=== PATIENT | male | born 1965 | race Caucasian/White ===

== ENCOUNTER → 2017-07-27 | Outpatient (CLI) | payer BC, MEDICARE | LOC: DAVITANR 13:12 | PROVIDERS: ATTEND Internal Medicine Nephrology | DX: E87.5 Hyperkalemia (principal) | CPT/HCPCS: 84132 ==

== ENCOUNTER → 2017-08-11 | Outpatient (CLI) | payer BC, MEDICARE | LOC: OD 07:07 | PROVIDERS: ATTEND Internal Medicine Nephrology | DX: E87.5 Hyperkalemia (principal) | CPT/HCPCS: 36415; 84132 ==

== ENCOUNTER → 2017-08-28 | Outpatient (CLI) | payer BC, MEDICARE ==
[2017-08-28 09:03] LABS: VANCOMYCIN,TROUGH 9.3 ug/mL (5.0-20.0)
== END ==
LOC: DAVITANR 07:11
PROVIDERS: ATTEND Internal Medicine Nephrology
DX: K65.9 Peritonitis, unspecified (principal)
CPT/HCPCS: 80202

== ENCOUNTER → 2017-09-01 | Outpatient (CLI) | payer BC, MEDICARE ==
[2017-09-01 08:57] LABS: VANCOMYCIN,TROUGH 19.6 ug/mL (5.0-20.0)
== END ==
LOC: DAVITANR 07:10
PROVIDERS: ATTEND Internal Medicine Nephrology
DX: K65.9 Peritonitis, unspecified (principal)
CPT/HCPCS: 80202

== ENCOUNTER → 2017-10-28 | Outpatient (CLI) | payer BC, MEDICARE | LOC: OD 07:09 | PROVIDERS: ATTEND Internal Medicine Nephrology | DX: E87.5 Hyperkalemia (principal) | CPT/HCPCS: 36415; 84132 ==

== ENCOUNTER 2018-07-23 09:18 | Emergency (ER) | payer BC, MEDICARE ==
--- NOTE | 2018-07-23 09:35 | ER Document Report ---
ED Medical Screen (RME) - General TRAVEL OUTSIDE OF THE [place] IN LAST 30 DAYS: No <PRIYANKA LEYVA - Last Filed: 07/23/18 09:34> <NEVAEH COLMENARES - Last Filed: 07/23/18 18:58> - General Chief Complaint: Abnormal Lab Results Stated Complaint: ABNORMAL LABS Time Seen by Provider: 07/23/18 09:28 Notes: 53 years old male who is on peritoneal dialysis, had blood work done yesterday and he was called by the dialysis center today because potassium was very high. He has been asked to come to the hospital. Patient has no symptoms. Examination-unremarkable. (PRIYANKA LEYVA) - Related Data Allergies/Adverse Reactions: No Known Allergies Allergy (Verified 07/23/18 10:35) Past Medical History - Past Medical History Cardiac Medical History: Reports: Hx Hypertension - on meds Denies: Hx Coronary Artery Disease, Hx Heart Attack Pulmonary Medical History: Denies: Hx Asthma, Hx Bronchitis, Hx COPD, Hx Pneumonia Neurological Medical History: Denies: Hx Cerebrovascular Accident, Hx Seizures Musculoskeltal Medical History: Denies Hx Arthritis Past Surgical History: Reports: Hx Rectal Surgery - Immunizations Hx Diphtheria, Pertussis, Tetanus Vaccination: Yes <PRIYANKA LEYVA - Last Filed: 07/23/18 09:34> - Vital signs Vitals: Temp Pulse Resp BP Pulse Ox 97.6 F 67 16 152/84 H 99 07/23/18 09:29 07/23/18 09:29 07/23/18 09:29 07/23/18 09:29 07/23/18 09:29 Course - Laboratory Result Diagrams: 07/23/18 18:20 <NEVAEH COLMENARES - Last Filed: 07/23/18 18:58> - Vital Signs Vital signs: Temp Pulse Resp BP Pulse Ox 97.6 F 67 14 166/95 H 97 07/23/18 09:29 07/23/18 09:29 07/23/18 18:01 07/23/18 18:00 07/23/18 18:01 - Laboratory Laboratory results interpreted by me: 07/23/18 07/23/18 07/23/18 09:43 12:30 18:20 Potassium 6.6 H* 7.0 H* 5.7 H D Carbon Dioxide 21 L 20 L BUN 62 H 61 H 60 H Creatinine 11.97 H 12.48 H 11.89 H Est GFR ( Amer) 5 L 5 L 5 L Est GFR (Non-Af Amer) 4 L 4 L 5 L Glucose 62 L Magnesium 2.4 H Direct Bilirubin 0.5 H ALT 16 L Doctor's Discharge <PRIYANKA LEYVA - Last Filed: 07/23/18 09:34> <NEVAEH COLMENARES - Last Filed: 07/23/18 18:58> - Discharge Clinical Impression: Hyperkalemia, Chronic kidney disease (CKD) stage G4/A1, severely decreased glomerular filtration rate (GFR) between 15-29 mL/min/1.73 square meter and albuminuria creatinine ratio less than 30 mg/g, Noncompliance with medication regimen Referrals: JOSE ART MD [Primary Care Provider] - Follow up as needed
[2018-07-23 10:16] LABS: ALANINE AMINOTRANSFERASE 16 U/L (21-72); ALKALINE PHOSPHATASE 55 U/L (38-126); ANION GAP 16 (5-19); ASPARTATE AMINO TRANSFERASE 25 U/L (17-59); BILIRUBIN,DIRECT 0.5 mg/dL (0.0-0.4); BILIRUBIN,TOTAL 0.5 mg/dL (0.2-1.3); BLOOD UREA NITROGEN 62 mg/dL (7-20); CALCIUM 9.7 mg/dL (8.4-10.2); CARBON DIOXIDE 26 mmol/L (22-30); CHLORIDE 101 mmol/L (98-107); GLUCOSE 62 mg/dL (75-110)
--- NOTE | 2018-07-23 10:16 | ER Document Report ---
ED General - General Mode of Arrival: Ambulatory Information source: Patient TRAVEL OUTSIDE OF THE [place] IN LAST 30 DAYS: No - Related Data Home Medications: hydralazine 100 mg qhs. ferrous sulfate 325 mg bid. metoprolol 100 mg. [id number] iu. amlodipine 10 mg. doxazosin 4 mg. calcium acetate 667 mg 3 tabs with every meal. sevelamer 800 2 tabs every meal. calcitrol .[address] 20 mg <MARY LAMB - Last Filed: 07/23/18 10:19> <NEVAEH COLMENARES - Last Filed: 07/23/18 18:35> <ANIKET YATES - Last Filed: 07/23/18 18:59> - General Chief Complaint: Abnormal Lab Results Stated Complaint: ABNORMAL LABS Time Seen by Provider: 07/23/18 09:28 Notes: Patient is a 53 year old male currently on peritoneal dialysis was sent to the emergency department due to elevated potassium. Patient states she had blood work done by [facility] for follow up on 07/20/2018. He states he was called this morning and instructed to come to the emergency department due to an elevated potassium. Patient states he has had a copious amount of orange juice the last 4 days, with his last drink being this morning. Patient is currently asymptomatic. Patient's fender finisher is Dr. Art. (MARY LAMB) Late history: The patient is supposed to be taking Kayexalate 30 g once weekly. He has not been taking this medication for at least 1-2 weeks, and has been drinking orange juice every day for the last several days. He was given 15 g of Kayexalate about 10:30 AM, he will be given an additional 30 g of Kayexalate now that I have learned what his weekly dosing is supposed to be. (NEVAEH COLMENARES) - Related Data Allergies/Adverse Reactions: No Known Allergies Allergy (Verified 07/23/18 10:35) Past Medical History - General Information source: Patient - Social History Smoking Status: Former Smoker Chew tobacco use (# tins/day): No Frequency of alcohol use: None Drug Abuse: None Family History: Reviewed & Not Pertinent Patient has suicidal ideation: No Patient has homicidal ideation: No - Past Medical History Cardiac Medical History: Reports: Hx Hypertension - on meds Renal/ Medical History: Reports: Hx Peritoneal Dialysis - nightly Past Surgical History: Reports: Hx Rectal Surgery - Immunizations Hx Diphtheria, Pertussis, Tetanus Vaccination: Yes <MARY LAMB - Last Filed: 07/23/18 10:19> Review of Systems - Review of Systems Constitutional: No symptoms reported EENT: No symptoms reported Cardiovascular: No symptoms reported Respiratory: No symptoms reported Gastrointestinal: No symptoms reported Genitourinary: No symptoms reported Male Genitourinary: No symptoms reported Musculoskeletal: No symptoms reported Hematologic/Lymphatic: See HPI Neurological/Psychological: No symptoms reported -: Yes All other systems reviewed and negative <MARY LAMB - Last Filed: 07/23/18 10:19> Physical Exam <MARY LAMB - Last Filed: 07/23/18 10:19> <NEVAEH COLMENARES - Last Filed: 07/23/18 18:35> <ANIKET YATES - Last Filed: 07/23/18 18:59> - Vital signs Vitals: Temp Pulse Resp BP Pulse Ox 97.6 F 67 16 152/84 H 99 07/23/18 09:29 07/23/18 09:29 07/23/18 09:29 07/23/18 09:29 07/23/18 09:29 - Notes Notes: GENERAL: Alert, interacts well. No acute distress. HEAD: Normocephalic, atraumatic. EYES: Pupils equal, round, and reactive to light. Extraocular movements intact. ENT: Oral mucosa moist, tongue midline. NECK: Full range of motion. Supple. Trachea midline. LUNGS: Clear to auscultation bilaterally, no wheezes, rales, or rhonchi. No respiratory distress. HEART: Regular rate and rhythm. No murmurs, gallops, or rubs. ABDOMEN: Soft, non-tender. Peritoneal cath in place. Non-distended. Bowel sounds present in all 4 quadrants. EXTREMITIES: Moves all 4 extremities spontaneously. NEUROLOGICAL: Alert and oriented x3. Normal speech. PSYCH: Normal affect, normal mood. SKIN: Warm, dry, normal turgor. No rashes or lesions noted. (MARY LAMB) Course - Laboratory Result Diagrams: 07/23/18 09:43 <MARY LAMB - Last Filed: 07/23/18 10:19> - Laboratory Result Diagrams: 07/23/18 12:30 - EKG Interpretation by Me EKG shows normal: Sinus rhythm, [place], Intervals, QRS Complexes, ST-T Waves Rate: Normal - 59 Rhythm: NSR [place]/QRS: Right axis deviation When compared to previous EKG there are: No significant change - Transfer of Care Care transferred to following provider: Dr. Mast <NEVAEH COLMENARES - Last Filed: 07/23/18 18:35> - Laboratory Result Diagrams: 07/23/18 18:20 <ANIKET YATES - Last Filed: 07/23/18 18:59> - Re-evaluation Re-evalutation: 07/23/18 15:15 Repeat potassium went from 6.6 to 7.0 after his initial dose of Kayexalate 15. He was given an additional dose of Kayexalate 30 g. He was also given 1 L of normal saline. The EKG and monitor does not show EKG changes or tall T waves. The patient problems were discussed with Dr. Art who requests I give him an additional 15 g of Kayexalate for a total of 60 g today. And repeat his potassium in 2 hours. If it comes down to 6.0 or less he can be discharged, if it does not then she should be called back for further instructions. We will also give another liter of normal saline. (NEVAEH COLMENARES) 07/23/18 18:58 Received patient as sign out from previous physician pending repeat potassium, according to patient fender finisher if the potassium comes back less than 6 then patient can safely be discharged home to follow-up as an outpatient, repeat potassium is 5.7, therefore patient will be discharged home, patient is in agreement with this plan and was advised to return if any additional concerns ( ANIKET YATES) - Vital Signs Vital signs: Temp Pulse Resp BP Pulse Ox 97.6 F 67 14 166/95 H 97 07/23/18 09:29 07/23/18 09:29 07/23/18 18:01 07/23/18 18:00 07/23/18 18:01 - Laboratory Laboratory results interpreted by me: 07/23/18 07/23/18 07/23/18 09:43 12:30 18:20 Potassium 6.6 H* 7.0 H* 5.7 H D Carbon Dioxide 21 L 20 L BUN 62 H 61 H 60 H Creatinine 11.97 H 12.48 H 11.89 H Est GFR ( Amer) 5 L 5 L 5 L Est GFR (Non-Af Amer) 4 L 4 L 5 L Glucose 62 L Magnesium 2.4 H Direct Bilirubin 0.5 H ALT 16 L - Transfer of Care Notes: 07/23/18 18:32 Pending repeat potassium level. If level is down to 6.0 or less he may go home and take an additional 30 g of Kayexalate tomorrow, and stop eating foods and drinking fluids that are high in potassium. If potassium remains above 6.0, then call Dr. Art for further direction. ( NEVAEH COLMENARES) Critical Care Note - Critical Care Note Total time excluding time spent on procedures (mins): 35 <NEVAEH COLMENARES - Last Filed: 07/23/18 18:35> Discharge <MARY LAMB - Last Filed: 07/23/18 10:19> <NEVAEH COLMENARES - Last Filed: 07/23/18 18:35> <ANIKET YATES - Last Filed: 07/23/18 18:59> - Discharge Clinical Impression: Hyperkalemia, Chronic kidney disease (CKD) stage G4/A1, severely decreased glomerular filtration rate (GFR) between 15-29 mL/min/1.73 square meter and albuminuria creatinine ratio less than 30 mg/g, Noncompliance with medication regimen Condition: Stable Disposition: HOME, SELF-CARE Instructions: Kidney Failure ([facility]) Additional Instructions: Follow up with your primary care provider and fender finisher in one to 2 days. Return to the emergency room immediately if symptoms worsen or any additional concerns. Referrals: JOSE ART MD [Primary Care Provider] - Follow up as needed Scribe Attestation: 07/23/18 12:10 I personally performed the services described in the documentation, reviewed and edited the documentation which was dictated to the scribe in my presence, and it accurately records my words and actions. (NEVAEH COLMENARES) Scribe Documentation - Scribe Written by Scribe:: Nayan Park 07/23/2018 10:18 acting as scribe for :: Rain <MARY LAMB - Last Filed: 07/23/18 10:19>
[2018-07-23 10:20] LABS: POTASSIUM 6.6 mmol/L (3.6-5.0)
[2018-07-23] MEDS ORDERED: SODIUM POLYSTYRENE SULFONATE 15 GM/60 ML PO ONE ×3 (10:25→15:13)
[2018-07-23] MEDS ORDERED: CALCIUM GLUCONATE 1000 MG/10 ML INJ IV ONE (10:25)
[2018-07-23 13:17] LABS: ANION GAP 18 (5-19); BLOOD UREA NITROGEN 61 mg/dL (7-20); CALCIUM 9.4 mg/dL (8.4-10.2); CARBON DIOXIDE 21 mmol/L (22-30); CHLORIDE 102 mmol/L (98-107); GLUCOSE 106 mg/dL (75-110); SODIUM 141.4 mmol/L (137-145)
[2018-07-23] MEDS ORDERED: NORMAL SALINE 1000 ML 1,000 ML IV ONE ×2 (13:24→15:14)
[2018-07-23 18:45] LABS: ANION GAP 18 (5-19); BLOOD UREA NITROGEN 60 mg/dL (7-20); CALCIUM 8.7 mg/dL (8.4-10.2); CARBON DIOXIDE 20 mmol/L (22-30); CHLORIDE 106 mmol/L (98-107); GLUCOSE 108 mg/dL (75-110); SODIUM 143.7 mmol/L (137-145)
[2018-07-23 18:55] LABS: POTASSIUM 5.7 mmol/L (3.6-5.0)
[2018-07-23 19:13] VITALS: BP 172/98
--- NOTE | 2018-07-25 10:48 | EKG REPORT ---
SEVERITY:- ABNORMAL ECG - SINUS RHYTHM RIGHT AXIS DEVIATION : Confirmed by: Riley Felipe 25-Jul-2018 10:47:43
== END 2018-07-23 19:17 | disposition home or self-care (01) ==
LOC: ER 09:18
DX: E87.5 Hyperkalemia (principal); I12.9 Hypertensive chronic kidney disease with stage 1 through stage 4 chronic kidney disease, or unspecified chronic kidney disease; N18.4 Chronic kidney disease, stage 4 (severe); Z99.2 Dependence on renal dialysis; Z91.15 Patient's noncompliance with renal dialysis; Z79.899 Other long term (current) drug therapy; Z87.891 Personal history of nicotine dependence; I10 Essential (primary) hypertension
CPT/HCPCS: 93005; 99285; 96361; 96374; 36415; 83735; 80048; 80053; 93010; J0610; J7030

== ENCOUNTER → 2018-07-26 | Outpatient (CLI) | payer BC, MEDICARE | LOC: OD 13:41 | PROVIDERS: ATTEND Internal Medicine Nephrology | DX: E87.5 Hyperkalemia (principal) | CPT/HCPCS: 36415; 84132 ==

== ENCOUNTER 2018-09-21 08:47 | Day surgery (SDC) | payer OTHER, MEDICARE ==
[2018-09-08 10:54] LABS: HEMATOCRIT 26.4 % (37.9-51.0); MEAN CORPUSCULAR HGB CONC 33.9 g/dL (32.0-36.0); MEAN CORPUSCULAR VOLUME 88 fl (80-97); PLATELET COUNT 370 10^3/uL (150-450); RED BLOOD COUNT 2.99 10^6/uL (4.35-5.55); RED CELL DISTRIBUTION WIDTH 16.1 % (11.5-14.0); WHITE BLOOD COUNT 6.8 10^3/uL (4.0-10.5)
[2018-09-08 11:02] LABS: INTERNATIONAL RATION (INR) 0.94
[2018-09-08 11:03] LABS: PARTIAL THROMBOPLASTIN TIME 29.4 SEC (23.5-35.8)
--- NOTE | 2018-09-09 08:07 | EKG REPORT ---
SEVERITY:- OTHERWISE NORMAL ECG - SINUS RHYTHM LOW VOLTAGE IN FRONTAL LEADS : Confirmed by: Julianna Rodriguez MD 09-Sep-2018 08:06:13
[~2018-09-21 08:47] MED LIST: CEFAZOLIN 1 GM/D5W RTU 1 GM/50 ML RTUPB IV PRN; FENTANYL CITRATE INJ/PF 100 MCG/2 ML AMPUL ONE; LACTATED RINGERS 1000 ML IV PRN; LIDOCAINE 0.5% INJ-PF (5 MG/ML) 50 ML SDV SUBCUT PRN; LIDOCAINE 2% INJ-PF (20 MG/ML) 10 ML AMPUL ONE; MIDAZOLAM 2 MG/2 ML INJ ONE; ONDANSETRON HCL INJ/PF 4 MG/2 ML SDV ONE; PROPOFOL INJ 200 MG/20 ML VIAL IV ONE
[2018-09-21] MEDS ORDERED: CEFAZOLIN 1 GM/D5W RTU 1 GM/50 ML RTUPB IV ONE (08:57)
[2018-09-21] MEDS ORDERED: ALBUTEROL SULFATE 0.083% NEB 2.5 MG/3 ML AMPUL NEB ONE (09:21)
[2018-09-21] MEDS ORDERED: LIDOCAINE 1%/EPINEPHRINE INJ 20 ML VIAL ONE (09:45)
[2018-09-21] MEDS ORDERED: SODIUM BICARBONATE 8.4% INJ 50 MEQ/50 ML DISP.SYRIN ONE (09:45)
[2018-09-21] MEDS ORDERED: KETAMINE HCL INJ 500 MG/10 ML VIAL ONE (10:25)
[2018-09-21] MEDS ORDERED: DIPHENHYDRAMINE HCL 50 MG/ML VIAL IV PRN (10:51)
[2018-09-21] MEDS ORDERED: FENTANYL CITRATE INJ/PF 100 MCG/2 ML AMPUL IV PRN ×3 (10:51)
[2018-09-21] MEDS ORDERED: PROMETHAZINE HCL INJ 25 MG/1 ML VIAL IV PRN (10:51)
[2018-09-21] MEDS ORDERED: ONDANSETRON HCL INJ/PF 4 MG/2 ML SDV IV PRN (10:51)
[2018-09-21] MEDS ORDERED: MEPERIDINE HCL/PF INJ 25 MG/1 ML DISP.SYRIN IV PRN (10:51)
--- NOTE | 2018-09-21 11:17 | Operative Report ---
Operative Report DATE OF SURGERY: 09/21/18 PREOPERATIVE DIAGNOSIS: Basal cell carcinoma of the sternum POSTOPERATIVE DIAGNOSIS: Same OPERATION: Excision of basal cell carcinoma from the sternum with frozen section margin control and reconstruction with a chest sliding advancement flap reconstruction SURGEON: LAUREN HILARIO ANESTHESIA: LMAC TISSUE REMOVED OR ALTERED: Basal cell carcinoma COMPLICATIONS: None ESTIMATED BLOOD LOSS: Minimal PROCEDURE: Patient seen and was marked prior to being brought into the operating room. Patient was brought into the operating room and placed on the operating room table in a [supine] position. Patient was then prepped with a Betadine scrub and Betadine solution and draped in a sterile and aseptic manner. The area was then marked. 12 O'clock was marked towards the neck 3 O'clock was marked towards the left side 6:00 was marked towards the stomach 9:00 was marked towards the right side The area was then anesthetized with 1% lidocaine with epinephrine and bicarbonate for its anesthetic and hemostatic effects. The area was then excised and marked at 12:00. The specimen was sent for frozen section. The results came back that the deep and lateral margins were free. We had considered a primary closure but this would go against the natural relaxed skin tension lines. A primary closure would be too tight and would have increased chance of dehiscence. This will leave more of a scar so we decided to use a sliding advancement flap reconstruction which would camouflage the scar better and take tension off of the closure so that would be less chances of complications. We decided to use the sliding advancement flap which would allow us to minimize the distortion of his chest tattoo. The cancer was located right within the nose of a bat on his chest. By doing a sliding advancement flap we were able to reconstruct this bringing some of the mouth up without distorting the rest of the surrounding tattoo. At the end of the case we had a reasonably good appearance of the tattoo maintaining the lower portion of the mouth of the tattoo of the bad without distortion of the nose or the cheeks of the bat. Then we went ahead and outlined the flap and anesthetized it. We then incised the flap and developed a flap maintaining the subdermal plexus. Then we undermined 360 to allow for plate like scarring and minimize trap door deformity. Throughout the case hemostasis was achieved with the bipolar. We then sutured the flap into its new position using [ 4-0 Vicryl] for the subcutaneous and deep dermis. Skin was closed with a [running subcuticular suture] stitch using [4-0 PDS] with knots being tied on the outside. And [4-0 PDS] suture was used for support and placed in the central area of the incision. We then applied Dermabond followed by a light pressure dressing. Patient was then reversed from anesthesia and taken to the [facility] for recovery. The patient tolerated well. There were no complications. Lesion size was approximately 3 cm please see pathology for actual size. Portions of this note may be dictated using [employer] voice recognition software. Occasional variations and spelling and vocabulary could be possible and are unintentional. Additionally, there is a chance that some errors may not be caught or corrected. Please notify the author of any discrepancies noted or if any statements are unclear. Subjective: No complaints Objective: Vital signs stable afebrile No bleeding Dressing intact Assessment and plan: Doing well. Elevate the operative site. Resume medications. Take antibiotics for 1 day Follow-up Full instructions were given to the patient and family and they understand Portions of this note may be dictated using [employer] voice recognition software. Occasional variations and spelling and vocabulary could be possible and are unintentional. Additionally, there is a chance that some errors may not be caught or corrected. Please notify the offer of any discrepancies noted or if any statements are unclear.
--- NOTE | 2018-09-21 11:19 | Discharge Summary ---
Discharge Summary (SDC) - Discharge Final Diagnosis: Basal cell carcinoma of the sternum Date of Surgery: 09/21/18 Condition: Good Treatment or Instructions: Antibiotics for 1 day, then discontinue. Elevate operative area to decrease swelling. Do not strain, or lift heavy objects. Call for excessive bleeding, increased temperature of 101, uncontrolled pain, or excessive nausea or vomiting. You may reach Dr. Morocho through his office at [phone]. In the event of an emergency after hours, then contact Dr. Morocho through [facility]. Return to the office for a postop check on . The time will be scheduled by the nursing staff of [facility] prior to discharge. Please give the patient a copy of their labs and EKG so they can bring this to their PMD. Thank you Portions of this note may be dictated using [employer] voice recognition software. Occasional variations and spelling and vocabulary could be possible and are unintentional. Additionally, there is a chance that some errors may not be caught or corrected. Please notify the offer of any discrepancies noted or if any statements are unclear. Referrals: ROCIO ACRE MD [Primary Care Provider] - Discharge Diet: As Tolerated Discharge Activity: No Lifting/Push/Pulling Report the Following to Your Physician Immediately: Unusual Bleeding - No bending or straining. No stretching. Keep the chest elevated.
[2018-09-21] MEDS ORDERED: GLYCOPYRROLATE 1 MG/5 ML SYRINGE ONE (11:29)
[2018-09-21 13:47] VITALS: BP 150/85
== END 2018-09-21 13:20 | disposition home or self-care (01) ==
LOC: OROUT 08:47
PROVIDERS: ATTEND Plastic Surgery
DX: C44.599 Other specified malignant neoplasm of skin of other part of trunk (principal); C44.519 Basal cell carcinoma of skin of other part of trunk; Q61.3 Polycystic kidney, unspecified; I10 Essential (primary) hypertension; E11.9 Type 2 diabetes mellitus without complications; Z79.899 Other long term (current) drug therapy; Z87.891 Personal history of nicotine dependence; L57.8 Other skin changes due to chronic exposure to nonionizing radiation; Z01.818 Encounter for other preprocedural examination
CPT/HCPCS: 93010; 93005; 36415 ×2; 84132; 85027; 85610; 85730; 88305 ×2; 88331 ×2; 14000; J2250; J0690; J3010; J3490 ×5; J2405; J2704; 400

== ENCOUNTER 2018-09-21 17:18 | Emergency (ER) | payer OTHER, MEDICARE ==
[2018-09-21 17:27] VITALS: BP 128/85
--- NOTE | 2018-09-21 17:43 | ER Document Report ---
ED GI/ - General Chief Complaint: Urinary Retention Stated Complaint: URINARY ISSUES Time Seen by Provider: 09/21/18 17:34 Primary Care Provider: LAUREN HILARIO MD [ACTIVE STAFF] - Follow up as needed Notes: 53-year-old male to the emergency department chief complaint of urinary retention. Patient had surgery today. Went home but had not urinated. Still cannot urinary. Patient is on peritoneal dialysis but makes urine regularly. Denies any other major symptoms at this time. Patient was having melanoma surgery on his chest. TRAVEL OUTSIDE OF THE [place] IN LAST 30 DAYS: No - HPI Patient complains to provider of: Urinary retention Timing/Duration: Gradual Quality of pain: Achy - Related Data Allergies/Adverse Reactions: No Known Allergies Allergy (Verified 09/08/18 10:57) Past Medical History - General Information source: Patient - Social History Smoking Status: Former Smoker Frequency of alcohol use: None Drug Abuse: None Lives with: Family Family History: Reviewed & Not Pertinent - Past Medical History Cardiac Medical History: Reports: Hx Hypertension Denies: Hx Coronary Artery Disease, Hx Heart Attack Pulmonary Medical History: Denies: Hx Asthma, Hx Bronchitis, Hx COPD, Hx Pneumonia Neurological Medical History: Denies: Hx Cerebrovascular Accident, Hx Seizures Renal/ Medical History: Reports: Hx Peritoneal Dialysis - nightly Musculoskeletal Medical History: Denies Hx Arthritis Past Surgical History: Reports: Hx Rectal Surgery - Immunizations Hx Diphtheria, Pertussis, Tetanus Vaccination: Yes Review of Systems - Review of Systems Constitutional: denies: Fever, Malaise, Weakness Cardiovascular: denies: Chest pain, Palpitations, Heart racing Respiratory: denies: Cough, Hurts to breathe, Short of breath, Wheezing Gastrointestinal: Abdomen distended. denies: Abdominal pain, Diarrhea, Nausea Genitourinary: Retention. denies: Flank pain, Hematuria Physical Exam - Vital signs Vitals: Temp Pulse Resp BP Pulse Ox 98.2 F 61 16 128/85 H 96 09/21/18 17:26 09/21/18 17:26 09/21/18 17:26 09/21/18 17:26 09/21/18 17:26 Interpretation: Normal - General General appearance: Appears well, Alert - Respiratory Respiratory status: No respiratory distress Chest status: Nontender Breath sounds: Normal Chest palpation: Normal - Cardiovascular Rhythm: Regular Heart sounds: Normal auscultation Murmur: No - Abdominal Inspection: Other - Mild distention lower abdomen. Peritoneal dialysis catheter in place. Distension: Distended Tenderness: No: Tender - Extremities General upper extremity: Normal inspection, Nontender, Normal color, Normal ROM, Normal temperature General lower extremity: Normal inspection, Nontender, Normal color, Normal ROM, Normal temperature, Normal weight bearing. No: Thony's sign Course - Re-evaluation Re-evalutation: 09/21/18 17:43 Patient needs catheter placed. Will try to find a room and [facility] as soon as possible. 09/21/18 18:29 Catheter placed. About 450-500 cc return. Clear appearing urine. Sent for analysis. Will DC at this time. 09/21/18 20:09 Laboratory 09/21/18 18:24 Urine Color STRAW Urine Appearance CLEAR Urine pH 9.0 Ur Specific Una 1.008 Urine Protein 100 H Urine Glucose (UA) 150 H Urine Ketones NEGATIVE Urine Blood NEGATIVE Urine Nitrite NEGATIVE Urine Bilirubin NEGATIVE Urine Urobilinogen NEGATIVE Ur Leukocyte Esterase NEGATIVE Urine WBC (Auto) 1 Urine RBC (Auto) 1 Urine Bacteria (Auto) TRACE Urine Mucus (Auto) RARE Urine Ascorbic Acid NEGATIVE - Vital Signs Vital signs: Temp Pulse Resp BP Pulse Ox 98.2 F 61 16 128/85 H 96 09/21/18 17:26 09/21/18 17:26 09/21/18 17:26 09/21/18 17:26 09/21/18 17:26 - Laboratory Laboratory results interpreted by me: 09/21/18 18:24 Urine Protein 100 H Urine Glucose (UA) 150 H Discharge - Discharge Clinical Impression: Acute urinary retention Condition: Good Disposition: HOME, SELF-CARE Instructions: [place] Catheter Care ([facility]), Urinary Retention ([facility]) Additional Instructions: Return in 24-48 hours or return to your primary care doctor in 24-48 hours for removal of the catheter. Forms: Return to Work Referrals: LAUREN HILARIO MD [ACTIVE STAFF] - Follow up as needed
[2018-09-21 18:54] LABS: APPEARANCE,URINE CLEAR; BILIRUBIN,URINE NEGATIVE (NEGATIVE); COLOR,URINE STRAW; GLUCOSE, URINE 150 mg/dL (NEGATIVE); KETONES,URINE NEGATIVE (NEGATIVE); LEUKOCYTE ESTERASE,URINE NEGATIVE (NEGATIVE); NITRITE,URINE NEGATIVE (NEGATIVE); PROTEIN,URINE 100 mg/dL (NEGATIVE); URINE SPECIFIC GRAVITY 1.008; UROBILINOGEN,URINE NEGATIVE mg/dL (<2.0)
== END 2018-09-21 18:45 | disposition home or self-care (01) ==
LOC: ER 17:18
DX: R33.9 Retention of urine, unspecified (principal); I10 Essential (primary) hypertension; Z99.2 Dependence on renal dialysis; Z98.890 Other specified postprocedural states; Z87.891 Personal history of nicotine dependence; Z85.820 Personal history of malignant melanoma of skin
CPT/HCPCS: 51702; 81001; 99283

== ENCOUNTER 2018-09-22 07:46 | Emergency (ER) | payer OTHER, MEDICARE ==
--- NOTE | 2018-09-22 10:30 | ER Document Report ---
ED General - General Chief Complaint: Problem with Urinary Catheter Stated Complaint: REVISIT/CATHETER Time Seen by Provider: 09/22/18 09:55 TRAVEL OUTSIDE OF THE [place] IN LAST 30 DAYS: No - HPI Notes: Patient is a 53-year-old male that presents to the emergency department for chief complaint of Melton catheter removal. Patient had melanoma removed from his chest yesterday morning. Yesterday evening he was having urinary retention from the anesthesia. He was seen in the emergency room and states Melton catheter was placed. He denies any concern at the catheter and has had normal urine output into his catheter. He states he returned today for catheter removal. He denies any fevers or chills, penile pain, abdominal pain, nausea and vomiting. He denies any concern with his incision site states the dressing placed yesterday morning has remained dry. Past Medical History: Skin cancer Past Surgical History: Anterior chest wall skin cancer removal Social History: Denies drugs alcohol and tobacco Family History: Reviewed and noncontributory for presenting illness Allergies: Reviewed, see documented allergy list. REVIEW OF SYSTEMS: CONSTITUTIONAL : No fever No chills No diaphoresis No recent illness EENT: No vision changes No congestion No sore throat CARDIOVASCULAR: No chest pain No palpitations RESPIRATORY: No shortness of breath No cough No difficulty breathing GASTROINTESTINAL: No abdominal pain No nausea No vomiting No diarrhea GENITOURINARY: No dysuria No hematuria No difficulty urinating MUSCULOSKELETAL: No back pain No leg pain No arm pain SKIN: No rashes No lesions LYMPHATIC: No swollen, enlarged glands. NEUROLOGICAL: No lightheadedness No headache No weakness No paresthesias PSYCHIATRIC: No anxiety No depression PHYSICAL EXAMINATION: Vital signs reviewed, nursing noted reviewed. GENERAL: Well-appearing, well-nourished and in no acute distress. HEAD: Atraumatic, normocephalic. EYES: Eyes appear normal, extraocular movements intact, sclera anicteric, conjunctiva are normal. ENT: nares patent, oropharynx clear without exudates. Moist mucous membranes. NECK: Normal range of motion, supple without lymphadenopathy LUNGS: Breath sounds clear to auscultation bilaterally and equal. No wheezes rales or rhonchi. HEART: Regular rate and rhythm without murmurs ABDOMEN: Soft, nontender, normoactive bowel sounds. No rebound, guarding, or rigidity. No masses appreciated. EXTREMITIES: Nontender, good range of motion, no pitting or edema. NEUROLOGICAL: No focal neurological deficits. Moves all extremities spontaneously Motor and sensory grossly intact on exam. PSYCH: Normal mood, normal affect. SKIN: Warm, Dry, normal turgor, no rashes or lesions noted on exposed skin - Related Data Allergies/Adverse Reactions: No Known Allergies Allergy (Verified 09/22/18 07:51) Past Medical History - Social History Smoking Status: Unknown if Ever Smoked Family History: Reviewed & Not Pertinent Patient has suicidal ideation: No Patient has homicidal ideation: No - Past Medical History Cardiac Medical History: Reports: Hx Hypertension Denies: Hx Coronary Artery Disease, Hx Heart Attack Pulmonary Medical History: Denies: Hx Asthma, Hx Bronchitis, Hx COPD, Hx Pneumonia Neurological Medical History: Denies: Hx Cerebrovascular Accident, Hx Seizures Renal/ Medical History: Denies: Hx Peritoneal Dialysis Musculoskeletal Medical History: Denies Hx Arthritis Past Surgical History: Reports: Hx Rectal Surgery - Immunizations Hx Diphtheria, Pertussis, Tetanus Vaccination: Yes Physical Exam - Vital signs Vitals: Temp Pulse Resp BP Pulse Ox 97.9 F 55 L 18 132/83 H 99 09/22/18 07:52 09/22/18 07:52 09/22/18 07:52 09/22/18 07:52 09/22/18 07:52 Course - Re-evaluation Re-evalutation: 09/22/18 10:29 Vitals reviewed. Nursing notes reviewed. Patient is in no acute distress. His Melton catheter will be removed and if he is able to void he will be discharged home. 09/22/18 11:48 Melton catheter was removed and patient was able to void about 50 cc. He has been drinking fluids and after about 2 hours of being in the emergency room he has really only voided a small amount. Bedside ultrasound shows a moderate amount of urine still in his bladder. He is not having any abdominal discomfort or symptoms. I recommended replacing the Melton catheter for bladder decompression. Patient is refusing reinsertion of the Melton catheter. He states that he will continue to try and void on his own at home. His urinary retention is likely related to the anesthesia he received yesterday. I would anticipate as the anesthesia wears off his retention symptoms resolved. Patient is not wanting any further management at this time. He was encouraged to return to the emergency room if he developed further retention symptoms. He is discharged home in stable condition. - Vital Signs Vital signs: Temp Pulse Resp BP Pulse Ox 97.9 F 55 L 18 132/83 H 99 09/22/18 07:52 09/22/18 07:52 09/22/18 07:52 09/22/18 07:52 09/22/18 07:52 Discharge - Discharge Clinical Impression: Urinary retention Condition: Stable Disposition: HOME, SELF-CARE Instructions: Urinary Retention ([facility]) Additional Instructions: Please return to the emergency department if you have any worsening, or concern of your symptoms. Please return to the emergency department if you develop chest pain, difficulty breathing, severe abdominal pain, or ongoing vomiting. Please follow-up with your primary care physician in 2-3 days and any other recommended physicians. If prescribed, take all medications as directed. If you have any questions or concerns do not hesitate to return the emergency department for evaluation. If you are unable to urinate please return to the emergency room as he will require Melton catheter again to empty her bladder.
[2018-09-22 11:58] VITALS: BP 152/89
== END 2018-09-22 11:57 | disposition home or self-care (01) ==
LOC: ER 07:46
DX: T83.098A Other mechanical complication of other urinary catheter, initial encounter (principal); R33.9 Retention of urine, unspecified; I10 Essential (primary) hypertension
CPT/HCPCS: 99283

== ENCOUNTER → 2018-12-08 | Outpatient (CLI) | payer MEDICARE, MEDICAID ==
--- NOTE | 2018-12-08 08:51 | RADIOLOGY REPORT (SQ) ---
EXAM DESCRIPTION: CT ABD/PELVIS WITH IV ORAL COMPLETED DATE/TIME: 12/08/2018 8:38 am REASON FOR STUDY: MELENA/ABN FINDINGS ON DIAGNOSTIC IMAGING OF OTHER PARTS OF DIGESTIVE TRACT K92.1 MELENA R93.3 ABNORMAL FINDINGS ON DX IMAGING OF PRT DIGESTIVE TRACT COMPARISON: 06/12/2015 TECHNIQUE: CT scan of the abdomen and pelvis performed using helical scanning technique with dynamic intravenous contrast injection. No oral contrast. Images reviewed with lung, soft tissue, and bone windows. Reconstructed coronal and sagittal MPR images reviewed. Delayed images for evaluation of the urinary system also acquired. All images stored on PACS. All CT scanners at this facility use dose modulation, iterative reconstruction, and/or weight based d osing when appropriate to reduce radiation dose to as low as reasonably achievable (ALARA). [facility]: Dose Right [facility]: CareDose [facility]: Dose Right [facility]: Teradose 4D [facility]: Granular CONTRAST TYPE AND DOSE: contrast/concentration: Isovue 350.00 mg/ml; Total Contrast Delivered: 85.0 ml; Total Saline Delivered: 69.0 ml RENAL FUNCTION: Creatinine is 14.7. Patient is on dialysis. RADIATION DOSE: CT Rad equipment meets quality standard of care and radiation dose reduction techniq ues were employed. CTDIvol: 7.3 - 8.4 mGy. DLP: 908 mGy-cm.. LIMITATIONS: None. FINDINGS: LOWER CHEST: No significant findings. No nodules or infiltrates. LIVER: Multiple stable hepatic cysts. SPLEEN: Normal size. No focal lesions. PANCREAS: No masses. No significant calcifications. No adjacent inflammation or peripancreatic fluid collections. Pancreatic duct not dilated. GALLBLADDER: No identified stones by CT criteria. No inflammatory changes to suggest cholecystitis. ADRENAL GLANDS: The left adrenal appears normal. Right adrenal gland is poorly visualized. RIGHT KIDNEY AND URETER: Numerous right renal cysts consistent with polycystic renal disease. Kidney s are enlarged. No significant calcifications. No hydronephrosis or hydroureter. LEFT KIDNEY AND URETER: Numerous left renal cysts consistent with polycystic renal disease. The left kidney is enlarged. No significant calcifications. No hydronephrosis or hydroureter. AORTA AND VESSELS: No aneurysm. No dissection. Renal arteries, SMA, celiac without stenosis. RETROPERITONEUM: No retroperitoneal adenopathy, hemorrhage or masses. BOWEL AND PERITONEAL CAVITY: No focal masses. Large and small bowel is displaced by the fall is cyst ic kidneys. APPENDIX: Not visualized. PELVIS: There is a small amount of free fluid in the pelvis. ABDOMINAL WALL: No masses. No hernias. BONES: No significant or acute findings. OTHER: Peritoneal dialysis catheter is in place. IMPRESSION: Polycystic renal disease. No focal inflammatory changes. No focal masses. TECHNICAL DOCUMENTATION: JOB ID: [id number] Quality ID # [id number]: Final reports with documentation of one or more dose reduction techniques (e.g., Au tomated exposure control, adjustment of the mA and/or kV according to patient size, use of iterative reconstruction technique) 2010 [employer]- All Rights Reserved Reading location - IP/workstation name: [email or web address]
== END ==
LOC: RAD 07:48
PROVIDERS: ATTEND Internal Medicine Gastroenterology
DX: K92.1 Melena (principal); R93.3 Abnormal findings on diagnostic imaging of other parts of digestive tract; Q61.3 Polycystic kidney, unspecified
CPT/HCPCS: 74177; 82565

== ENCOUNTER 2019-01-13 06:04 | Day surgery (SDC) | payer MEDICARE, OTHER, MEDICAID ==
[2019-01-07 09:42] LABS: ABSOLUTE BASOPHILS # (AUTO) 0.1 10^3/uL (0.0-0.2); ABSOLUTE EOSINOPHILS # (AUTO) 0.1 10^3/uL (0.0-0.6); ABSOLUTE LYMPHOCYTES (AUTO) 1.2 10^3/uL (0.5-4.7); ABSOLUTE MONOCYTES (AUTO) 0.9 10^3/uL (0.1-1.4); ABSOLUTE NEUT (AUTO) 3.4 10^3/uL (1.7-8.2); BASOPHILS % (AUTO) 1.2 % (0-2); EOSINOPHILS % (AUTO) 2.3 % (0-6); HEMATOCRIT 33.3 % (37.9-51.0); HEMOGLOBIN 10.7 g/dL (13.5-17.0); LYMPHOCYTES % (AUTO) 20.8 % (13-45); MEAN CORPUSCULAR HEMOGLOBIN 27.4 pg (27.0-33.4); MEAN CORPUSCULAR HGB CONC 32.1 g/dL (32.0-36.0); MEAN CORPUSCULAR VOLUME 85 fl (80-97); MONOCYTES % (AUTO) 15.8 % (3-13); PLATELET COUNT 379 10^3/uL (150-450); RED CELL DISTRIBUTION WIDTH 15.6 % (11.5-14.0); SEGMENTED NEUTROPHILS % (AUTO) 59.9 % (42-78); TOTAL CELLS COUNTED % (AUTO) 100 %; WHITE BLOOD COUNT 5.7 10^3/uL (4.0-10.5)
[2019-01-07 10:03] LABS: ANION GAP 15 (5-19); BLOOD UREA NITROGEN 63 mg/dL (7-20); CALCIUM 10.2 mg/dL (8.4-10.2); CARBON DIOXIDE 25 mmol/L (22-30); CHLORIDE 102 mmol/L (98-107); GLUCOSE 83 mg/dL (75-110); POTASSIUM 5.7 mmol/L (3.6-5.0); SODIUM 142.4 mmol/L (137-145)
--- NOTE | 2019-01-07 22:36 | EKG REPORT ---
SEVERITY:- ABNORMAL ECG - SINUS RHYTHM PROBABLE LEFT ATRIAL ABNORMALITY CONSIDER ANTEROSEPTAL INFARCT : Confirmed by: Riley Felipe 07-Jan-2019 22:35:53
[~2019-01-13 06:04] MED LIST changes: -CEFAZOLIN 1 GM/D5W RTU 1 GM/50 ML RTUPB IV PRN; -FENTANYL CITRATE INJ/PF 100 MCG/2 ML AMPUL ONE; +IBUPROFEN 800 MG in NORMAL SALINE 250 ML IV PRN; -LACTATED RINGERS 1000 ML IV PRN; -LIDOCAINE 2% INJ-PF (20 MG/ML) 10 ML AMPUL ONE; +METRONIDAZOLE 500 MG/NS RTU 500 MG/100 ML RTUPB IV ONE; +METRONIDAZOLE 500 MG/NS RTU 500 MG/100 ML RTUPB IV PRN; -MIDAZOLAM 2 MG/2 ML INJ ONE; +NORMAL SALINE 1000 ML (RENAL PATIENTS) IV PRN; -ONDANSETRON HCL INJ/PF 4 MG/2 ML SDV ONE; +PREGABALIN 50 MG CAPSULE ONE; +PREGABALIN 50 MG CAPSULE PO PRN; -PROPOFOL INJ 200 MG/20 ML VIAL IV ONE
[2019-01-13] MEDS ORDERED: BACITRACIN ZINC OINTMENT 15 GM ONE (07:07)
[2019-01-13] MEDS ORDERED: BUPIVACAINE INJ/PF LIPOSOME/PF 266 MG/20 ML SDV ONE (07:07)
[2019-01-13] MEDS ORDERED: LIDOCAINE 2% JELLY 30 ML TUBE ONE (07:07)
[2019-01-13] MEDS ORDERED: MIDAZOLAM 2 MG/2 ML INJ ONE (08:01)
[2019-01-13] MEDS ORDERED: PROPOFOL INJ 200 MG/20 ML VIAL IV ONE (08:02)
[2019-01-13] MEDS ORDERED: KETAMINE HCL INJ 500 MG/10 ML VIAL ONE (09:16)
--- NOTE | 2019-01-13 09:17 | Discharge Summary ---
Discharge Summary (SDC) - Discharge Final Diagnosis: Enlarged internal/external hemorrhoids with bleeding Date of Surgery: 01/13/19 Discharge Date: 01/13/19 Condition: Stable Treatment or Instructions: Discharge home. Diet as tolerated. Activity nonstrenuous. Follow-up with me in 7 to 10 days. [place] 10/325 mg p.o. every 6 hours as needed for pain. Ibuprofen 800 mg p.o. 3 times daily with meals. 5% lidocaine ointment to rectum 3 times daily. [id number] Neosporin ointment to rectum 3 times daily. Fiber supplement twice daily. Colace 200 mg ([id number]) p.o. twice daily. Soak rectum/anus in warm bathtub with soap and water twice daily and after bowel movements. Referrals: ROCIO ARCE MD [Primary Care Provider] - Discharge Diet: As Tolerated Respiratory Treatments at Home: Deep Breathing/Coughing, Incentive Spirometer Discharge Activity: Balance Activity w/Rest Home Care Assistance: None Needed Report the Following to Your Physician Immediately: Shortness of Breath, Nausea, Vomiting, Increase in Pain, Fever over 101 Degrees, Unusual Bleeding, Redness
--- NOTE | 2019-01-13 09:21 | Operative Report ---
Nonrecallable Operative Report DATE OF SURGERY: 01/13/19 PREOPERATIVE DIAGNOSIS: Enlarged internal and external hemorrhoids with bleeding POSTOPERATIVE DIAGNOSIS: Same as above, right posterior and left lateral OPERATION: 2 column surgical hemorrhoidectomy. Right posterior and left lateral columns. SURGEON: LISA WU PHYSICAL TESTING SUPERVISOR: ROSALINA ERVIN ANESTHESIA: LMAC TISSUE REMOVED OR ALTERED: Right posterior and left lateral hemorrhoid columns COMPLICATIONS: None apparent ESTIMATED BLOOD LOSS: 30 cc PROCEDURE: Procedure in detail: After informed consent was obtained, the patient was laid in the prone position in the operating room. An anal block was created with Exparel. Next, a Hill-Riggs retractor was inserted into the anus. Hemorrhoids in the left lateral and right posterior columns were found to be enlarged. These 2 hemorrhoid columns were excised using electrocautery. The resultant defect was closed using 3-0 chromic suture. Great care was taken to reapproximate mucosa to mucosa, anoderm to anoderm, and skin to skin. The anus and rectum was found to be hemostatic. Once this was completed, the procedure was concluded. All sponge, instrument, needle counts were correct x2. Condition: Stable. Rosalina Ervin PA-C was scrubbed and present the entirety the procedure. She assisted with all portions of the procedure including excision of the hemorrhoids, closure of the defect, placement of the dressing.
[2019-01-13] MEDS ORDERED: HYDROCODONE/ACETAMINOPHEN 10-325 MG TABLET PO PRN (09:33)
[2019-01-13] MEDS ORDERED: IBUPROFEN 800 MG TABLET PO SCH (10:00)
[2019-01-13] MEDS ORDERED: NEOMY/BACITRAC ZN/POLY OINT 15 GM TP SCH (10:00)
[2019-01-13] MEDS ORDERED: DOCUSATE SODIUM 100 MG CAPSULE PO SCH (10:00)
[2019-01-13] MEDS ORDERED: LIDOCAINE 5% OINTMENT 35.44 GM TP SCH (10:00)
[2019-01-13 10:04] LABS: PHOSPHORUS 7.6 mg/dL (2.5-4.5)
[2019-01-13 12:50] VITALS: BP 158/106
== END 2019-01-13 11:05 | disposition home or self-care (01) ==
LOC: OROUT 06:04
PROVIDERS: ATTEND Surgery
DX: K64.4 Residual hemorrhoidal skin tags (principal); K64.8 Other hemorrhoids; Q61.3 Polycystic kidney, unspecified; Z99.2 Dependence on renal dialysis; I10 Essential (primary) hypertension; K43.2 Incisional hernia without obstruction or gangrene; Z87.891 Personal history of nicotine dependence; Z79.899 Other long term (current) drug therapy
CPT/HCPCS: 93005; 36415 ×2; 83735; 84100; 84132; 85025; 80048; 88304 ×2; 93010; 46260; J2250; J3490 ×3; J7050; J2704; A9270; C9290; J1741; 902

== ENCOUNTER → 2019-04-19 | Outpatient (CLI) | payer MEDICARE, OTHER, MEDICAID | LOC: DAVITANR 09:41 | PROVIDERS: ATTEND Internal Medicine Nephrology | DX: E87.5 Hyperkalemia (principal) | CPT/HCPCS: 84132 ==

== ENCOUNTER 2019-05-18 07:59 | Emergency (ER) | payer MEDICARE, OTHER, MEDICAID ==
[2019-05-18] MEDS ORDERED: AMOXICILLIN TR/POT CLAVULANATE 500-125 MG TAB PO ONE (08:55)
--- NOTE | 2019-05-18 09:03 | ER Document Report ---
ED General - General Chief Complaint: Sore Throat Stated Complaint: SORE THROAT Time Seen by Provider: 05/18/19 08:42 Primary Care Provider: ROCIO ARCE MD [Primary Care Provider] - Follow up as needed TRAVEL OUTSIDE OF THE [place] IN LAST 30 DAYS: No - HPI Notes: 53-year-old male with a history of end-stage renal disease on home peritoneal dialysis presents with sore throat. Gradual onset over the last 24 hours burning pain in his throat, worse with swallowing. No fever, no runny nose congestion. Throat felt scratchy prior to this. No abdominal pain. No cough. Moderate intensity, gradual onset, nonradiating. No other modifying factors, no other associated symptoms, no other provocative or palliative factors. - Related Data Allergies/Adverse Reactions: gabapentin [From Neurontin] Allergy (Verified 05/18/19 08:19) hydroxyzine [From Atarax] Allergy (Verified 05/18/19 08:19) Past Medical History - Social History Smoking Status: Former Smoker Chew tobacco use (# tins/day): No Frequency of alcohol use: Occasional Drug Abuse: None Family History: Reviewed & Not Pertinent Patient has suicidal ideation: No Patient has homicidal ideation: No - Past Medical History Cardiac Medical History: Reports: Hx Hypertension Denies: Hx Coronary Artery Disease, Hx Heart Attack Pulmonary Medical History: Denies: Hx Asthma, Hx Bronchitis, Hx COPD, Hx Pneumonia Neurological Medical History: Denies: Hx Cerebrovascular Accident, Hx Seizures Renal/ Medical History: Reports: Hx End Stage Renal Disease, Hx Peritoneal Dialysis GI Medical History: Reports: Hx Gastroesophageal Reflux Disease, Hx Ulcer Musculoskeletal Medical History: Reports Hx Arthritis - generalized Past Surgical History: Reports: Hx Rectal Surgery - Immunizations Hx Diphtheria, Pertussis, Tetanus Vaccination: Yes Hx Pneumococcal Vaccination: 08/17/17 Review of Systems - Review of Systems Notes: Review of systems as in the history of present illness, otherwise negative x 10 systems. Physical Exam - Vital signs Vitals: Temp Pulse Resp BP Pulse Ox 97.6 F 69 18 175/110 H 100 05/18/19 08:03 05/18/19 08:03 05/18/19 08:03 05/18/19 08:03 05/18/19 08:03 - Notes Notes: General: Well developed . HEENT: Normocephalic, atraumatic. Pupils equal round reactive to light. No JV D. Moderate pharyngeal injection. The uvula is enlarged, edematous and red Chest: No trauma. Respiratory: Good air exchange, normal excursion. Cardiac: Regular rhythm. No murmurs or gallops. Abdomen: Soft, benign. Nondistended. Nontender. Back: No asymmetry or gross abnormality. Motor: Grossly normal power and tone. Neurologic: Alert, nonfocal. Cranial nerves II-12 are intact. Sensation intact. Vascular: Well perfused. Normal peripheral pulses. Skin: No petechiae or purpura. Course - Re-evaluation Re-evalutation: 05/18/19 08:58 Well-appearing male with pharyngitis and isolated uvulitis, bacterial versus viral. Will err on the side of caution and cover with antibiotics for bacterial. Specific instructions are given to return if any worsening. Strep test have been ordered, however, will not wait on results as his disposition will not change, he is being treated with antibiotics. 05/18/19 08:59 - Vital Signs Vital signs: Temp Pulse Resp BP Pulse Ox 97.6 F 69 18 175/110 H 100 05/18/19 08:03 05/18/19 08:03 05/18/19 08:03 05/18/19 08:03 05/18/19 08:03 Discharge - Discharge Clinical Impression: Uvulitis Condition: Stable Disposition: HOME, SELF-CARE Instructions: Sore Throat ([facility]) Prescriptions: Amox Tr/Potassium Clavulanate [Augmentin 875-125 Tablet] 1 tab PO BID 10 Days tablet Referrals: ROCIO ARCE MD [Primary Care Provider] - Follow up in 1 week
[2019-05-18 09:25] VITALS: BP 172/108
== END 2019-05-18 09:23 | disposition home or self-care (01) ==
LOC: ER 07:59
DX: K12.2 Cellulitis and abscess of mouth (principal); J02.9 Acute pharyngitis, unspecified; I12.0 Hypertensive chronic kidney disease with stage 5 chronic kidney disease or end stage renal disease; N18.6 End stage renal disease; Z99.2 Dependence on renal dialysis; Z87.891 Personal history of nicotine dependence; Z88.6 Allergy status to analgesic agent; Z88.8 Allergy status to other drugs, medicaments and biological substances
CPT/HCPCS: 99282; 87070; A9270

== ENCOUNTER 2019-06-11 09:12 | Emergency (ER) | payer MEDICARE, OTHER, MEDICAID ==
--- NOTE | 2019-06-11 09:28 | ER Document Report ---
ED Medical Screen (RME) - General Chief Complaint: Dialysis Catheter Problem Stated Complaint: DIALYSIS ISSUE Time Seen by Provider: 06/11/19 09:16 Primary Care Provider: Oralia AGUILAR MD [Primary Care Provider] - Follow up as needed Mode of Arrival: Ambulatory Information source: Patient Notes: Patient presents complaining of his peritoneal dialysis catheter not draining. Patient states that he connected to solution yesterday and it did not drain overnight. Patient denies any fever, nausea, vomiting or abdominal pain at this time. Patient states he did take MiraLAX [id number] to see if that would help him have a bowel movement to may be allow the catheter to drain. hx: Peritoneal dialysis, hypertension, polycystic kidney I have greeted and performed a rapid initial assessment of this patient. A comprehensive ED assessment and evaluation of the patient, analysis of test results and completion of the medical decision making process will be conducted by additional ED providers. TRAVEL OUTSIDE OF THE [place] IN LAST 30 DAYS: No - Related Data Allergies/Adverse Reactions: gabapentin [From Neurontin] Allergy (Verified 05/18/19 08:19) hydroxyzine [From Atarax] Allergy (Verified 05/18/19 08:19) Past Medical History - Social History Frequency of alcohol use: Occasional - Past Medical History Cardiac Medical History: Reports: Hx Hypertension Denies: Hx Coronary Artery Disease, Hx Heart Attack Pulmonary Medical History: Denies: Hx Asthma, Hx Bronchitis, Hx COPD, Hx Pneumonia Neurological Medical History: Denies: Hx Cerebrovascular Accident, Hx Seizures Renal/ Medical History: Reports: Hx End Stage Renal Disease, Hx Peritoneal Dialysis GI Medical History: Reports: Hx Gastroesophageal Reflux Disease, Hx Ulcer Musculoskeltal Medical History: Reports Hx Arthritis - generalized Past Surgical History: Reports: Hx Rectal Surgery - Immunizations Hx Diphtheria, Pertussis, Tetanus Vaccination: Yes Physical Exam - Vital signs Vitals: Temp Pulse Resp BP Pulse Ox 97.3 F 64 18 141/90 H 97 06/11/19 09:17 06/11/19 09:17 06/11/19 09:17 06/11/19 09:17 06/11/19 09:17 - Abdominal Distension: Distended Tenderness: Nontender Course - Vital Signs Vital signs: Temp Pulse Resp BP Pulse Ox 97.3 F 64 18 141/90 H 97 06/11/19 09:17 06/11/19 09:17 06/11/19 09:17 06/11/19 09:17 06/11/19 09:17 Doctor's Discharge - Discharge Referrals: Oralia AGUILAR MD [Primary Care Provider] - Follow up as needed
--- NOTE | 2019-06-11 10:23 | ER Document Report ---
ED General - General Chief Complaint: Dialysis Catheter Problem Stated Complaint: DIALYSIS ISSUE Time Seen by Provider: 06/11/19 09:16 Primary Care Provider: Oralia AGUILAR MD [ACTIVE STAFF] - Follow up as needed Mode of Arrival: Ambulatory Information source: Patient, Dr. Office, [facility] Records Notes: 53-year-old male with end-stage renal disease, hypertension who performs peritoneal dialysis presents with concern for clogged PD catheter. Patient states that he placed 1300 cc of solution into his abdomen last night and awoke this morning with no drainage. He does state he feels his abdomen is more distended. He denies any abdominal pain, fever, chills, nausea, vomiting. He does report his last bowel movement was this morning. He denies any black or bl oody stools. Patient does report that he called the peritoneal nurse on-call who recommended that he be seen in the emergency department. TRAVEL OUTSIDE OF THE [place] IN LAST 30 DAYS: No - HPI Onset: This morning Onset/Duration: Sudden Quality of pain: No pain Severity: None Pain Level: Denies Associated symptoms: denies: Chest pain, Fever, Nausea, Vomiting, Shortness of breath Exacerbated by: Denies Relieved by: Denies Similar symptoms previously: Yes Recently seen / treated by doctor: No - Related Data Allergies/Adverse Reactions: gabapentin [From Neurontin] Allergy (Verified 05/18/19 08:19) hydroxyzine [From Atarax] Allergy (Verified 05/18/19 08:19) Past Medical History - General Information source: Patient - Social History Smoking Status: Never Smoker Frequency of alcohol use: Occasional Drug Abuse: None Lives with: Alone Family History: Reviewed & Not Pertinent Patient has suicidal ideation: No Patient has homicidal ideation: No - Past Medical History Cardiac Medical History: Reports: Hx Hypertension Denies: Hx Coronary Artery Disease, Hx Heart Attack Pulmonary Medical History: Denies: Hx Asthma, Hx Bronchitis, Hx COPD, Hx Pneumonia Neurological Medical History: Denies: Hx Cerebrovascular Accident, Hx Seizures Renal/ Medical History: Reports: Hx End Stage Renal Disease, Hx Peritoneal Dialysis GI Medical History: Reports: Hx Gastroesophageal Reflux Disease, Hx Ulcer Musculoskeletal Medical History: Reports Hx Arthritis - generalized Past Surgical History: Reports: Hx Rectal Surgery - Immunizations Hx Diphtheria, Pertussis, Tetanus Vaccination: Yes Hx Pneumococcal Vaccination: 08/17/17 Review of Systems - Review of Systems Notes: REVIEW OF SYSTEMS: CONSTITUTIONAL : Denies fever, chills, or sweats. Denies recent illness. Denies weight loss, recent hospitalizations. EENT: Denies visual changes, eye pain. Denies sore throat, oral lesions, diffi culty swallowing. CARDIOVASCULAR: Denies chest pain. Denies palpitations. Denies lower extremity edema. RESPIRATORY: Denies cough. Denies shortness of breath, wheezing. GASTROINTESTINAL: Denies abdominal pain + distention. Denies nausea, vomiting, or diarrhea. Denies blood in vomitus, stools, or per rectum. Denies black, tarry stools. + constipation. GENITOURINARY: Denies difficulty urinating, painful urination, frequency, blood in urine, testicular pain or penile discharge. MUSCULOSKELETAL: Denies back or neck pain or stiffness. Denies joint pain or swelling. SKIN: Denies rash, lesions or sores. HEMATOLOGIC : Denies easy bruising or bleeding. LYMPHATIC: Denies swollen glands. NEUROLOGICAL: Denies confusion or altered mental status. Denies loss of consciousness. Denies dizziness or lightheadedness. Denies headache. Denies weakness or paralysis. Denies problems difficulty with ambulation, slurred speech. Denies sensory loss, numbness, or tingling. Denies seizures. PSYCHIATRIC: Denies anxiety or stress. Denies depression, suicidal ideation, or Physical Exam - Vital signs Vitals: Temp Pulse Resp BP Pulse Ox 97.3 F 64 18 141/90 H 97 06/11/19 09:17 06/11/19 09:17 06/11/19 09:17 06/11/19 09:17 06/11/19 09:17 - Notes Notes: PHYSICAL EXAMINATION: GENERAL: Well-appearing, well-nourished and in no acute distress. HEAD: Atraumatic, normocephalic. EYES: Pupils equal round and reactive to light, extraocular movements intact, sclera anicteric, conjunctiva are normal. ENT: Nares patent, oropharynx clear without exudates. Moist mucous membranes. NECK: Normal range of motion, supple without lymphadenopathy LUNGS: Breath sounds clear to auscultation bilaterally and equal. No wheezes rales or rhonchi. HEART: Regular rate and rhythm without murmurs ABDOMEN: Soft, nontender, + positive abdominal distention. No guarding, no rebound. No masses appreciated. Musculoskeletal: Normal range of motion, no pitting or edema. No cyanosis. NEUROLOGICAL: Cranial nerves grossly intact. Normal speech, normal gait. Normal sensory, motor exams PSYCH: Normal mood, normal affect. SKIN: Warm, Dry, normal turgor, no rashes or lesions noted. Course - Re-evaluation Re-evalutation: 06/11/19 12:[address] Lucas who recommended to obtain a KUB to check for constipation as this can often be a source of peritoneal dialysis catheter dysfunction. This was obtained and showed no evidence of constipation. We did also try to flush the catheter with PD solution and 300 was infused and drained. We did speak to the peritoneal dialysis nurse on-call who recommends heparin. If this does not work patient will need surgical consult. 06/11/19 13:[address] Lucas again regarding patient's peritoneal dialysis catheter. I did explain to her that whatever fluid we infused was draining and she now recommends a full exchange in the emergency department. She states that if it drains the patient can be discharged home and needs to call the peritoneal dialysis nurse that she believes this might be a machine issue. 06/11/19 17:45 Exchange was completed and the entire solution amount was drained. Patient was very happy with this and was discharged home in stable condition with recommendations to call his peritoneal dialysis nurse so that she can assess the machine for malfunction. Patient was evaluated and treated as appropriate for the patient's presenting symptoms and complaint, with consideration of any critical or life threatening conditions that may be associated with their obtained history and exam as noted above. All results were discussed with patient and... Patient provided the opportunity to ask questions, and express concerns. Patient was educated on treatments based on their presumed diagnosis as noted above. At this time we will discharge the patient with return precautions and follow-up recommendations. Verbal discharge instructions given a the bedside. Medication warnings reviewed. Patient is in agreement with this plan and has verbalized understanding of return precautions. After careful consideration I feel that that patient can be safely discharged from the emergency department, they were advised to followup with a primary care physician in 2-3 days. Dictation on this chart was performed using voice recognition software and may result in unintended grammatical, spelling, syntax or errors. - Vital Signs Vital signs: Temp Pulse Resp BP Pulse Ox 97.3 F 68 16 143/92 H 99 06/11/19 15:56 06/11/19 15:56 06/11/19 15:56 06/11/19 15:56 06/11/19 15:56 - Laboratory Result Diagrams: 06/11/19 10:18 06/11/19 10:18 Laboratory results interpreted by me: 06/11/19 06/11/19 10:18 10:18 RBC 3.52 L Hgb 10.3 L Hct 31.2 L RDW 15.7 H Sodium 131.9 L Potassium 5.6 H Chloride 89 L BUN 49 H Creatinine 11.87 H Est GFR ( Amer) 5 L Est GFR (MDRD) Non-Af 5 L - Diagnostic Test Radiology reviewed: Image reviewed, Reports reviewed Discharge - Discharge Clinical Impression: Peritoneal dialysis catheter dysfunction Qualifiers: Encounter type: initial encounter Qualified Code(s): T85.611A - Breakdown (mechanical) of intraperitoneal dialysis catheter, initial encounter Condition: Good Disposition: HOME, SELF-CARE Additional Instructions: Please contact your peritoneal dialysis nurse so that she can check your machine. Follow up with your [id number] hours for further care or return to the ED IMMEDIATELY if symptoms worsen or you have any concerns. If you cannot afford to follow up with your primary care physician a list of low cost clinics have been provided at the end of your discharge papers as well. Most prescribed medications have multiple side effects. The safest thing to do is when filling your prescription speak to your pharmacist regarding possible interactions with your normal home medications and over the counter medications such as Ibuprofen, Tylenol, Benadryl. If you experience any symptoms that cause you discomfort or concern you should discontinue the medication immediately and return to the emergency room or call your primary care physician. Forms: Elevated Blood Pressure Referrals: Oralia AGUILAR MD [ACTIVE STAFF] - Follow up as needed
[2019-06-11 10:36] LABS: ABSOLUTE EOSINOPHILS # (AUTO) 0.2 10^3/uL (0.0-0.6); ABSOLUTE MONOCYTES (AUTO) 0.7 10^3/uL (0.1-1.4); ABSOLUTE NEUT (AUTO) 4.1 10^3/uL (1.7-8.2); BASOPHILS % (AUTO) 0.3 % (0-2); EOSINOPHILS % (AUTO) 2.6 % (0-6); HEMATOCRIT 31.2 % (37.9-51.0); HEMOGLOBIN 10.3 g/dL (13.5-17.0); LYMPHOCYTES % (AUTO) 16.7 % (13-45); MEAN CORPUSCULAR HEMOGLOBIN 29.4 pg (27.0-33.4); MEAN CORPUSCULAR HGB CONC 33.1 g/dL (32.0-36.0); MEAN CORPUSCULAR VOLUME 89 fl (80-97); MONOCYTES % (AUTO) 11.3 % (3-13); PLATELET COUNT 396 10^3/uL (150-450); RED BLOOD COUNT 3.52 10^6/uL (4.35-5.55); RED CELL DISTRIBUTION WIDTH 15.7 % (11.5-14.0); SEGMENTED NEUTROPHILS % (AUTO) 69.1 % (42-78); TOTAL CELLS COUNTED % (AUTO) 100 %
[2019-06-11 10:46] LABS: ALBUMIN 3.5 g/dL (3.5-5.0); ALKALINE PHOSPHATASE 65 U/L (38-126); ANION GAP 17 (5-19); ASPARTATE AMINO TRANSFERASE 32 U/L (17-59); BILIRUBIN,DIRECT 0.4 mg/dL (0.0-0.4); BILIRUBIN,TOTAL 0.5 mg/dL (0.2-1.3); BLOOD UREA NITROGEN 49 mg/dL (7-20); CALCIUM 8.9 mg/dL (8.4-10.2); CARBON DIOXIDE 26 mmol/L (22-30); CHLORIDE 89 mmol/L (98-107); GLUCOSE 83 mg/dL (75-110); POTASSIUM 5.6 mmol/L (3.6-5.0); TOTAL PROTEIN 6.5 g/dL (6.3-8.2)
--- NOTE | 2019-06-11 11:03 | RADIOLOGY REPORT (SQ) ---
EXAM DESCRIPTION: KUB/ABDOMEN (SINGLE VIEW) COMPLETED DATE/TIME: 06/11/2019 10:46 am REASON FOR STUDY: constipation COMPARISON: None. NUMBER OF VIEWS: One view. TECHNIQUE: Supine radiographic image of the abdomen acquired. LIMITATIONS: None. FINDINGS: BOWEL GAS PATTERN: Normal bowel gas pattern. No dilated loops. CALCIFICATIONS: Possible nephrolithiasis. SOFT TISSUES: No gross mass or suggestion of organomegaly. HARDWARE: Dialysis catheter. BONES: No acute fracture. No worrisome bone lesions. OTHER: No other significant finding. IMPRESSION: Possible nephrolithiasis. No evidence for constipation. TECHNICAL DOCUMENTATION: JOB ID: [id number] [employer]- All Rights Reserved Reading location - IP/workstation name: [email or web address]
[2019-06-11] MEDS ORDERED: HEPARIN SOD (PORCINE) 1,000 UNIT/ML 1 ML VIAL IV ONE (12:10)
--- NOTE | 2019-06-11 13:09 | EKG REPORT ---
SEVERITY:- ABNORMAL ECG - SINUS RHYTHM RIGHT AXIS DEVIATION CONSIDER ANTEROSEPTAL INFARCT : Confirmed by: Julianna Rodriguez MD 11-Jun-2019 13:08:43
[2019-06-11 15:57] VITALS: BP 143/92
== END 2019-06-11 15:57 | disposition home or self-care (01) ==
LOC: ER 09:12
DX: T85.611A Breakdown (mechanical) of intraperitoneal dialysis catheter, initial encounter (principal); I12.0 Hypertensive chronic kidney disease with stage 5 chronic kidney disease or end stage renal disease; N18.6 End stage renal disease; Z99.2 Dependence on renal dialysis; X58.XXXA Exposure to other specified factors, initial encounter
CPT/HCPCS: 93005; 99283; 36415; 85025; 80053; 74018; 93010; J1644

== ENCOUNTER 2019-06-24 17:22 | Emergency (ER) | payer MEDICARE, OTHER, MEDICAID ==
--- NOTE | 2019-06-24 18:40 | ER Document Report ---
ED Medical Screen (RME) - General Chief Complaint: Abnormal Lab Results Stated Complaint: ABNORMAL LABS Time Seen by Provider: 06/24/19 18:38 Primary Care Provider: ROCIO ARCE MD [Primary Care Provider] - Follow up as needed Mode of Arrival: Ambulatory Information source: Patient Notes: 53-year-old male presented to ED for abnormal potassium. He states he was called at home and told that his potassium was 7.3 the labs were drawn on 06/22/2019. He states he has renal failure and does peritoneal dialysis every night. He states he has been doing his peritoneal dialysis as ordered. He is not having any pain or discomfort at this time. We will get a EKG labs and have him in a room to be monitored. States his abdomen is full due to he has a full peritoneal dialysis bag in his abdomen needs to be drained tonight. I have greeted and performed a rapid initial assessment of this patient. A comprehensive ED assessment and evaluation of the patient, analysis of test results and completion of medical decision making process will be conducted by an additional ED providers. TRAVEL OUTSIDE OF THE [place] IN LAST 30 DAYS: No - Related Data Allergies/Adverse Reactions: gabapentin [From Neurontin] Allergy (Verified 05/18/19 08:19) hydroxyzine [From Atarax] Allergy (Verified 05/18/19 08:19) Past Medical History - Past Medical History Cardiac Medical History: Reports: Hx Hypertension Denies: Hx Coronary Artery Disease, Hx Heart Attack Pulmonary Medical History: Denies: Hx Asthma, Hx Bronchitis, Hx COPD, Hx Pneumonia Neurological Medical History: Denies: Hx Cerebrovascular Accident, Hx Seizures Renal/ Medical History: Reports: Hx End Stage Renal Disease, Hx Peritoneal Dialysis GI Medical History: Reports: Hx Gastroesophageal Reflux Disease, Hx Ulcer Musculoskeltal Medical History: Reports Hx Arthritis - generalized Past Surgical History: Reports: Hx Rectal Surgery - Immunizations Hx Diphtheria, Pertussis, Tetanus Vaccination: Yes Physical Exam - Vital signs Vitals: Temp Pulse Resp BP Pulse Ox 97.8 F 76 18 169/107 H 98 06/24/19 17:40 06/24/19 17:40 06/24/19 17:40 06/24/19 17:40 06/24/19 17:40 Course - Vital Signs Vital signs: Temp Pulse Resp BP Pulse Ox 97.8 F 76 18 169/107 H 98 06/24/19 17:40 06/24/19 17:40 06/24/19 17:40 06/24/19 17:40 06/24/19 17:40 Doctor's Discharge - Discharge Referrals: ROCIO ARCE MD [Primary Care Provider] - Follow up as needed
[2019-06-24 19:21] LABS: ABSOLUTE BASOPHILS # (AUTO) 0.1 10^3/uL (0.0-0.2); ABSOLUTE EOSINOPHILS # (AUTO) 0.1 10^3/uL (0.0-0.6); ABSOLUTE LYMPHOCYTES (AUTO) 1.1 10^3/uL (0.5-4.7); ABSOLUTE MONOCYTES (AUTO) 0.6 10^3/uL (0.1-1.4); ABSOLUTE NEUT (AUTO) 4.3 10^3/uL (1.7-8.2); BASOPHILS % (AUTO) 1.3 % (0-2); EOSINOPHILS % (AUTO) 2.4 % (0-6); HEMATOCRIT 33.9 % (37.9-51.0); HEMOGLOBIN 11.3 g/dL (13.5-17.0); LYMPHOCYTES % (AUTO) 18.2 % (13-45); MEAN CORPUSCULAR HEMOGLOBIN 29.5 pg (27.0-33.4); MEAN CORPUSCULAR HGB CONC 33.4 g/dL (32.0-36.0); MEAN CORPUSCULAR VOLUME 88 fl (80-97); MONOCYTES % (AUTO) 9.4 % (3-13); PLATELET COUNT 468 10^3/uL (150-450); RED BLOOD COUNT 3.84 10^6/uL (4.35-5.55); RED CELL DISTRIBUTION WIDTH 15.1 % (11.5-14.0); SEGMENTED NEUTROPHILS % (AUTO) 68.7 % (42-78); TOTAL CELLS COUNTED % (AUTO) 100 %; WHITE BLOOD COUNT 6.2 10^3/uL (4.0-10.5)
[2019-06-24 19:48] LABS: ALBUMIN 4.4 g/dL (3.5-5.0); ALKALINE PHOSPHATASE 68 U/L (38-126); ASPARTATE AMINO TRANSFERASE 33 U/L (17-59); BILIRUBIN,DIRECT 0.3 mg/dL (0.0-0.4); BILIRUBIN,TOTAL 0.4 mg/dL (0.2-1.3); BLOOD UREA NITROGEN 62 mg/dL (7-20); GLUCOSE 106 mg/dL (75-110); TOTAL PROTEIN 8.4 g/dL (6.3-8.2)
[2019-06-24 20:09] LABS: CARBON DIOXIDE 23 mmol/L (22-30); CHLORIDE 92 mmol/L (98-107)
[2019-06-24 20:16] LABS: ANION GAP 20 (5-19)
[2019-06-24 20:18] LABS: POTASSIUM 6.1 mmol/L (3.6-5.0)
[2019-06-24 20:24] VITALS: BP 211/136
--- NOTE | 2019-06-25 22:08 | EKG REPORT ---
SEVERITY:- OTHERWISE NORMAL ECG - SINUS RHYTHM VPC : Confirmed by: Riley Felipe 25-Jun-2019 22:07:28
--- NOTE | 2019-06-27 13:36 | ER Document Report ---
Entered by MIRYAM AGUILAR SCRIBE 06/24/19 193 Acting as scribe for:CORINE JACOBSEN MD ED General - General Chief Complaint: abnormal labs Stated Complaint: ABNORMAL LABS Time Seen by Provider: 06/24/19 18:38 Primary Care Provider: JOSE ART MD [ACTIVE STAFF] - Follow up as needed (Follow-up in 2 to 3 days for lab redraw) Mode of Arrival: Ambulatory Information source: Patient Notes: 53-year-old male who presents to the emergency department today for complaints of abnormal labs. Patient had labs drawn on 06/22/2019 and his potassium was found to be 7.3. He has known renal failure with daily peritoneal dialysis. Patient states he has not missed any dialysis treatments but he is due for his nightly dialysis now. Patient denies any pain or symptoms at this time. TRAVEL OUTSIDE OF THE [place] IN LAST 30 DAYS: No - Related Data Allergies/Adverse Reactions: gabapentin [From Neurontin] Allergy (Verified 06/24/19 18:44) hydroxyzine [From Atarax] Allergy (Verified 06/24/19 18:44) Past Medical History - General Information source: Patient - Social History Smoking Status: Never Smoker Cigarette use (# per day): No Chew tobacco use (# tins/day): No Frequency of alcohol use: Social Drug Abuse: None Lives with: Family Family History: Reviewed & Not Pertinent Patient has suicidal ideation: No Patient has homicidal ideation: No - Past Medical History Cardiac Medical History: Reports: Hx Hypertension Renal/ Medical History: Reports: Hx End Stage Renal Disease, Hx Peritoneal Dialysis GI Medical History: Reports: Hx Gastroesophageal Reflux Disease, Hx Ulcer Musculoskeletal Medical History: Reports Hx Arthritis - generalized Past Surgical History: Reports: Hx Rectal Surgery - Immunizations Hx Diphtheria, Pertussis, Tetanus Vaccination: Yes Hx Pneumococcal Vaccination: 08/17/17 Review of Systems - Review of Systems Constitutional: See HPI, Other - potassium of 7.3 EENT: No symptoms reported Cardiovascular: No symptoms reported Respiratory: No symptoms reported Gastrointestinal: No symptoms reported Genitourinary: No symptoms reported Male Genitourinary: No symptoms reported Musculoskeletal: No symptoms reported Skin: No symptoms reported Hematologic/Lymphatic: No symptoms reported Neurological/Psychological: No symptoms reported -: Yes All other systems reviewed and negative Physical Exam - Vital signs Vitals: Temp Pulse Resp BP Pulse Ox 97.8 F 76 18 169/107 H 98 06/24/19 17:40 06/24/19 17:40 06/24/19 17:40 06/24/19 17:40 06/24/19 17:40 - Notes Notes: Physical Exam: General: Alert, appears well. HEENT: Normocephalic. Atraumatic. PERRL. Extraocular movements intact. Oropharynx clear. Neck: Supple. Non-tender. Respiratory: No respiratory distress. Clear and equal breath sounds bilaterally. Cardiovascular: Regular rate and rhythm. Abdominal: Non-tender. Abdominal distension. Normal Bowel Sounds. Back: No gross abnormalities. Extremities: Moves all four extremities. Upper extremities: Normal inspection. Normal ROM. Lower extremities: Normal inspection. No edema. Normal ROM. Neurological: Normal cognition. AAOx4. Normal speech. Psychological: Normal affect. Normal Mood. Skin: Warm. Dry. Normal color. Course - Re-evaluation Re-evalutation: 06/24/19 20:27 Patient's potassium 6.1. Upon chart review his potassium is usually in the high fives. I discussed with the patient and he said that that is within his baseline. His EKG shows no concerning changes from prior. I instructed him if he continues to have any issues with his dialysis machine that he needs to return to the emergency department for lab redraw. Otherwise, he states that hi s machine has been replaced and is working properly over the last 24 hours or more. I did state he should follow-up with his cover machine operator early next week for lab redraw. Return precautions provided. Patient verbalizes understands return precautions and plan of care. - Vital Signs Vital signs: Temp Pulse Resp BP Pulse Ox 97.8 F 76 22 H 211/136 H 99 06/24/19 17:40 06/24/19 17:40 06/24/19 20:02 06/24/19 20:02 06/24/19 20:02 - Laboratory Result Diagrams: 06/24/19 19:08 06/24/19 19:08 Laboratory results interpreted by me: 06/24/19 06/24/19 19:08 19:08 RBC 3.84 L Hgb 11.3 L Hct 33.9 L RDW 15.1 H Plt Count 468 H Sodium 134.5 L Potassium 6.1 H* Chloride 92 L Anion Gap 20 H BUN 62 H Creatinine 13.43 H Est GFR ( Amer) 5 L Est GFR (MDRD) Non-Af 4 L Total Protein 8.4 H - EKG Interpretation by Me Additional EKG results interpreted by me: 06/24/19 20:29 Time 1024 Rate of 64, normal sinus rhythm, normal axis and intervals, no concerning ST depressions or elevations, no significant change from prior Discharge - Discharge Clinical Impression: Hyperkalemia, Chronic kidney disease (CKD) stage G4/A1, severely decreased glomerular filtration rate (GFR) between 15-29 mL/min/1.73 square meter and albuminuria creatinine ratio less than 30 mg/g Condition: Good Disposition: HOME, SELF-CARE Referrals: JOSE ART MD [ACTIVE STAFF] - Follow up as needed (Follow-up in 2 to 3 days for lab redraw) I personally performed the services described in the documentation, reviewed and edited the documentation which was dictated to the scribe in my presence, and it accurately records my words and actions.
== END 2019-06-24 21:25 | disposition home or self-care (01) ==
LOC: ER 17:22
DX: E87.5 Hyperkalemia (principal); I12.9 Hypertensive chronic kidney disease with stage 1 through stage 4 chronic kidney disease, or unspecified chronic kidney disease; N18.4 Chronic kidney disease, stage 4 (severe); Z99.2 Dependence on renal dialysis
CPT/HCPCS: 36415; 80053; 85025; 93005; 93010; 99285

== ENCOUNTER 2019-06-27 13:36 | Emergency (ER) | payer MEDICARE, OTHER, MEDICAID ==
--- NOTE | 2019-06-27 14:49 | ER Document Report ---
ED Medical Screen (RME) - General Chief Complaint: Abnormal Lab Results Stated Complaint: ABNORMAL LABS Time Seen by Provider: 06/27/19 14:42 Primary Care Provider: Oralia AGUILAR MD [Primary Care Provider] - Follow up as needed Mode of Arrival: Ambulatory Information source: Patient Notes: Patient presenting to the emergency department via the advice of his dialysis nurse. Patient reports he is a peritoneal dialysis patient, states he does this daily. Patient reports that his potassium was 6.7 at a earlier drawn today. Patient is completely asymptomatic, denying any symptoms. I have greeted and performed a rapid initial assessment of this patient. A comprehensive ED assessment and evaluation of the patient, analysis of test results and completion of the medical decision making process will be conducted by additional ED providers. I have specifically instructed the patient or family members with the patient to immediately return to any nursing staff should anything change in the patient's condition or with their chief complaint. This medical record was dictated with voice recognizing software. There may be grammatical, syntax errors that are unintended. TRAVEL OUTSIDE OF THE [place] IN LAST 30 DAYS: No - Related Data Allergies/Adverse Reactions: gabapentin [From Neurontin] Allergy (Verified 06/24/19 18:44) hydroxyzine [From Atarax] Allergy (Verified 06/24/19 18:44) Past Medical History - Social History Chew tobacco use (# tins/day): No Frequency of alcohol use: Occasional Drug Abuse: None - Past Medical History Cardiac Medical History: Reports: Hx Hypertension Denies: Hx Coronary Artery Disease, Hx Heart Attack Pulmonary Medical History: Denies: Hx Asthma, Hx Bronchitis, Hx COPD, Hx Pneumonia Neurological Medical History: Denies: Hx Cerebrovascular Accident, Hx Seizures Renal/ Medical History: Reports: Hx End Stage Renal Disease, Hx Peritoneal Dialysis GI Medical History: Reports: Hx Gastroesophageal Reflux Disease, Hx Ulcer Musculoskeltal Medical History: Reports Hx Arthritis - generalized Past Surgical History: Reports: Hx Rectal Surgery - Immunizations Hx Diphtheria, Pertussis, Tetanus Vaccination: Yes Physical Exam - Vital signs Vitals: Temp Pulse Resp BP Pulse Ox 97.8 F 75 18 152/101 H 98 06/27/19 13:56 06/27/19 13:56 06/27/19 13:56 06/27/19 13:56 06/27/19 13:56 Course - Vital Signs Vital signs: Temp Pulse Resp BP Pulse Ox 97.8 F 75 18 152/101 H 98 06/27/19 13:56 06/27/19 13:56 06/27/19 13:56 06/27/19 13:56 06/27/19 13:56 Doctor's Discharge - Discharge Referrals: Oralia AGUILAR MD [Primary Care Provider] - Follow up as needed
[2019-06-27 15:16] LABS: ABSOLUTE EOSINOPHILS # (AUTO) 0.1 10^3/uL (0.0-0.6); ABSOLUTE LYMPHOCYTES (AUTO) 1.3 10^3/uL (0.5-4.7); ABSOLUTE MONOCYTES (AUTO) 0.8 10^3/uL (0.1-1.4); ABSOLUTE NEUT (AUTO) 5.1 10^3/uL (1.7-8.2); BASOPHILS % (AUTO) 0.6 % (0-2); EOSINOPHILS % (AUTO) 1.7 % (0-6); HEMATOCRIT 32.7 % (37.9-51.0); HEMOGLOBIN 10.8 g/dL (13.5-17.0); LYMPHOCYTES % (AUTO) 17.2 % (13-45); MEAN CORPUSCULAR HEMOGLOBIN 29.4 pg (27.0-33.4); MEAN CORPUSCULAR HGB CONC 33.1 g/dL (32.0-36.0); MEAN CORPUSCULAR VOLUME 89 fl (80-97); PLATELET COUNT 474 10^3/uL (150-450); RED BLOOD COUNT 3.68 10^6/uL (4.35-5.55); RED CELL DISTRIBUTION WIDTH 15.4 % (11.5-14.0); SEGMENTED NEUTROPHILS % (AUTO) 69.5 % (42-78); TOTAL CELLS COUNTED % (AUTO) 100 %; WHITE BLOOD COUNT 7.4 10^3/uL (4.0-10.5)
[2019-06-27 15:41] LABS: ALBUMIN 3.9 g/dL (3.5-5.0); ALKALINE PHOSPHATASE 67 U/L (38-126); ANION GAP 18 (5-19); ASPARTATE AMINO TRANSFERASE 25 U/L (17-59); BILIRUBIN,DIRECT 0.3 mg/dL (0.0-0.4); BILIRUBIN,TOTAL 0.3 mg/dL (0.2-1.3); BLOOD UREA NITROGEN 49 mg/dL (7-20); CARBON DIOXIDE 26 mmol/L (22-30); CHLORIDE 95 mmol/L (98-107); GLUCOSE 79 mg/dL (75-110); TOTAL PROTEIN 7.1 g/dL (6.3-8.2)
[2019-06-27 15:59] LABS: POTASSIUM 6.8 mmol/L (3.6-5.0)
[2019-06-27] MEDS ORDERED: DEXTROSE 50%-WATER 25 GM/50 ML DISP.SYRIN IV ONE (17:38)
[2019-06-27] MEDS ORDERED: CALCIUM GLUCONATE 1000 MG/10 ML INJ IV ONE (17:38)
[2019-06-27] MEDS ORDERED: INSULIN REG, HUMAN 100 UNIT/ML 3 ML VIAL (PYX) IV ONE (17:40)
[2019-06-27] MEDS ORDERED: ALBUTEROL SULFATE 0.083% NEB 2.5 MG/3 ML AMPUL NEB ONE (17:41)
--- NOTE | 2019-06-27 17:47 | ER Document Report ---
ED General - General Chief Complaint: Abnormal Lab Results Stated Complaint: ABNORMAL LABS Time Seen by Provider: 06/27/19 14:42 Primary Care Provider: Oralia VÁZQUZE MD [Primary Care Provider] - Follow up as needed Mode of Arrival: Ambulatory TRAVEL OUTSIDE OF THE [place] IN LAST 30 DAYS: No - Related Data Allergies/Adverse Reactions: gabapentin [From Neurontin] Allergy (Verified 06/24/19 18:44) hydroxyzine [From Atarax] Allergy (Verified 06/24/19 18:44) Past Medical History - General Information source: Patient - Social History Smoking Status: Former Smoker Chew tobacco use (# tins/day): No Frequency of alcohol use: Occasional Drug Abuse: None Family History: Reviewed & Not Pertinent Patient has suicidal ideation: No Patient has homicidal ideation: No - Past Medical History Cardiac Medical History: Reports: Hx Hypertension Denies: Hx Coronary Artery Disease, Hx Heart Attack Pulmonary Medical History: Denies: Hx Asthma, Hx Bronchitis, Hx COPD, Hx Pneumonia Neurological Medical History: Denies: Hx Cerebrovascular Accident, Hx Seizures Renal/ Medical History: Reports: Hx End Stage Renal Disease, Hx Peritoneal Dialysis GI Medical History: Reports: Hx Gastroesophageal Reflux Disease, Hx Ulcer Musculoskeletal Medical History: Reports Hx Arthritis - generalized Past Surgical History: Reports: Hx Rectal Surgery - Immunizations Hx Diphtheria, Pertussis, Tetanus Vaccination: Yes Hx Pneumococcal Vaccination: 08/17/17 Physical Exam - Vital signs Vitals: Temp Pulse Resp BP Pulse Ox 97.8 F 75 18 152/101 H 98 06/27/19 13:56 06/27/19 13:56 06/27/19 13:56 06/27/19 13:56 06/27/19 13:56 - Notes Notes: Patient was referred in from PMD for evaluation of abnormal labs. He is currently on peritoneal dialysis and he has reportedly had elevated potassium. Patient reports that last week he had problems with his machine but is back on his normal dialysis for over a week. Was seen here on Thursday because of elevated potassium 2.3 in the ED was 6.1 he was discharged home with follow-up. Laboratories today and referred to the ER for further evaluation. He says he been taking his normal dialysis every night peers any chest pain shortness of breath nausea vomiting or abdominal pain has been compliant with his medication Past medical history is never hypertension and chronic renal failure Social history he does smoke and drink Review of systems pertinent positives and negatives as in HPI all the other systems reviewed and acutely negative PHYSICAL EXAMINATION: Vital signs were noted GENERAL: Well-appearing, well-nourished and in no acute distress. HEAD: Atraumatic, normocephalic. EYES: Pupils equal round and reactive to light, extraocular movements intact, sclera anicteric, conjunctiva are normal. ENT: nares patent, oropharynx clear without exudates. Moist mucous membranes. NECK: Normal range of motion, supple without lymphadenopathy LUNGS: Breath sounds clear to auscultation bilaterally and equal. No wheezes rales or rhonchi. HEART: Regular rate and rhythm with a day 2/6 systolic ejection murmur ABDOMEN: Soft, nontender, normoactive bowel sounds. EXTREMITIES: No deformity. Is +2 edema to the knee which is chronic no palpable cords no cyanosis. NEUROLOGICAL: No focal neurological deficits. Moves all extremities spontaneously and on command. PSYCH: Normal mood, normal affect. SKIN: Warm, Dry, normal turgor, no rashes or lesions noted. Back is nontender Course - Re-evaluation Re-evalutation: 06/27/19 18:26 Addendum I did discuss case with Dr. Vázquez from nephrology. Recommendation was to give the patient Kayexalate routine labs and repeat his potassium in 3 hours to see if is going down he can then be discharged home to take his peritoneal dialysis. He reports the patient is extremely noncompliant. 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 - Vital Signs Vital signs: Temp Pulse Resp BP Pulse Ox 97.8 F 75 18 152/101 H 98 06/27/19 13:56 06/27/19 13:56 06/27/19 13:56 06/27/19 13:56 06/27/19 13:56 - Laboratory Result Diagrams: 06/27/19 14:55 06/27/19 14:55 Laboratory results interpreted by me: 06/27/19 06/27/19 14:55 14:55 RBC 3.68 L Hgb 10.8 L Hct 32.7 L RDW 15.4 H Plt Count 474 H Potassium 6.8 H* Chloride 95 L BUN 49 H Creatinine 12.71 H Est GFR ( Amer) 5 L Est GFR (MDRD) Non-Af 4 L - EKG Interpretation by Me Additional EKG results interpreted by me: 06/27/19 18:38 EEG read by me shows a normal sinus rhythm at a rate of 68 there is some minimal nonspecific ST wave changes and QRS is 0.09 QT interval is not prolonged. EKG is unchanged from previous Discharge - Discharge Clinical Impression: Hyperkalemia, Chronic kidney disease (CKD) stage G4/A1, severely decreased glomerular filtration rate (GFR) between 15-29 mL/min/1.73 square meter and albuminuria creatinine ratio less than 30 mg/g Condition: Stable Disposition: OTHER Instructions: High Blood Pressure ([facility]) Additional Instructions: Please review the discharge instructions IT IS VERY IMPORTANT THAT YOU TAKE YOUR MEDICATIONS DIRECTED AND DO YOUR DIALYSIS DIRECTED-if your potassium stays high it can cause your heart to go into an abnormal rhythm and eventually stop resulting in Follow-up with your family doctor in 3 days to recheck your potassium Your blood pressure was elevated today needs to be rechecked again in 1 week to determine if you need medications adjusted Forms: Elevated Blood Pressure Referrals: Oralia VÁZQUEZ MD [Primary Care Provider] - Follow up as needed
[2019-06-27] MEDS ORDERED: SODIUM POLYSTYRENE SULFONATE 15 GM/60 ML PO ONE ×2 (18:30→23:17)
[2019-06-27 23:45] VITALS: BP 180/123
--- NOTE | 2019-06-28 00:07 | EKG REPORT ---
SEVERITY:- ABNORMAL ECG - SINUS RHYTHM CONSIDER ANTEROSEPTAL INFARCT : Confirmed by: Julianna Rodriguez MD 28-Jun-2019 00:06:59
== END 2019-06-27 23:44 | disposition other institution (70) ==
LOC: ER 13:36
DX: E87.5 Hyperkalemia (principal); I12.9 Hypertensive chronic kidney disease with stage 1 through stage 4 chronic kidney disease, or unspecified chronic kidney disease; N18.4 Chronic kidney disease, stage 4 (severe); Z99.2 Dependence on renal dialysis; Z87.891 Personal history of nicotine dependence
CPT/HCPCS: 93005; 36415; 83735; 84132; 85025; 80053; 84484; 93010; J0610; J3490; A9270 ×3; 94640; 96374; 96375; 99283; J1815

== ENCOUNTER → 2019-06-27 | Outpatient (CLI) | payer MEDICARE, OTHER, MEDICAID | LOC: OD 09:17 | PROVIDERS: ATTEND Internal Medicine Nephrology | DX: E87.5 Hyperkalemia (principal) | CPT/HCPCS: 36415; 84132 ==

== ENCOUNTER → 2019-07-01 | Outpatient (CLI) | payer MEDICARE, OTHER, MEDICAID ==
--- NOTE | 2019-07-01 09:46 | RADIOLOGY REPORT (SQ) ---
EXAM DESCRIPTION: HAND LEFT 3 VIEWS COMPLETED DATE/TIME: 07/01/2019 8:42 am REASON FOR STUDY: LEFT HAND PAIN M79.642 PAIN IN LEFT HAND COMPARISON: None. EXAM PARAMETERS: NUMBER OF VIEWS: Three views. TECHNIQUE: AP, lateral and oblique radiographic images acquired of the left hand. LIMITATIONS: None. FINDINGS: MINERALIZATION: Normal. BONES: There are globular soft tissue calcifications along the dorsal aspect of 2nd and 3rd metacarpa ls, 2nd and 3rd MCP joints, and 2nd proximal phalanx. There is no associated periarticular osteopeni a, erosion or joint space narrowing. There is no fracture, or dislocation. JOINTS: As above. SOFT TISSUES: As above. The punctate metallic radiodensities that project within the soft tissues of the distal 1st digit are nonspecific and could represent foreign bodies. OTHER: No other finding. IMPRESSION: Globular soft tissue calcifications along the dorsal aspect of the 2nd and 3rd metacarpa ls, 2nd and 3rd MCP joints, and 2nd proximal phalanx. The 2nd and 3rd MCP joint spaces appear normal without periarticular osteopenia, erosion or joint space narrowing. The differential considerations include hyperparathyroidism/renal osteodystrophy, polymyositis/dermatomyositis, and tumoral calcinos is. Gout and CCPD arthropathy should also be considered, however the calcifications appear extra- ar ticular. TECHNICAL DOCUMENTATION: JOB ID: [id number] [email or web address]- All Rights Reserved Reading location - IP/workstation name: [email or web address]
== END ==
LOC: OD 08:02
PROVIDERS: ATTEND Family Medicine
DX: M79.642 Pain in left hand (principal)

== ENCOUNTER 2019-07-07 12:19 | Emergency (ER) | payer MEDICARE, OTHER, MEDICAID ==
--- NOTE | 2019-07-07 12:33 | ER Document Report ---
ED Medical Screen (RME) - General Chief Complaint: Abnormal Lab Results Stated Complaint: ABNORMAL LABS Time Seen by Provider: 07/07/19 12:29 Primary Care Provider: ROCIO ARCE MD [Primary Care Provider] - Follow up as needed TRAVEL OUTSIDE OF THE [place] IN LAST 30 DAYS: No - HPI Notes: 07/07/19 12:30 Patient is a 54-year-old male with a history of end-stage renal disease who performs home peritoneal dialysis sessions daily presents per the direction of his dialysis nurse for elevated potassium. Patient states he is otherwise feeling well. He has no concerns or complaints. He is able to eat and drink without difficulty. He still does produce some urine. He is having normal bowel movements. I have treated and performed a rapid initial assessment of this patient. A comprehensive ED assessment and evaluation of the patient, analysis of test results and completion of medical decision making process will be conducted by additional ED providers. No fever, CP, SOB, abd pain, n/v/d. PHYSICAL EXAMINATION: GENERAL: Well-appearing, well-nourished and in no acute distress. A&Ox4. Answers questions appropriately. - Related Data Allergies/Adverse Reactions: gabapentin [From Neurontin] Allergy (Verified 06/24/19 18:44) hydroxyzine [From Atarax] Allergy (Verified 06/24/19 18:44) Past Medical History - Past Medical History Cardiac Medical History: Reports: Hx Hypertension Denies: Hx Coronary Artery Disease, Hx Heart Attack Pulmonary Medical History: Denies: Hx Asthma, Hx Bronchitis, Hx COPD, Hx Pneumonia Neurological Medical History: Denies: Hx Cerebrovascular Accident, Hx Seizures Renal/ Medical History: Reports: Hx End Stage Renal Disease, Hx Peritoneal Dialysis GI Medical History: Reports: Hx Gastroesophageal Reflux Disease, Hx Ulcer Musculoskeltal Medical History: Reports Hx Arthritis - generalized Past Surgical History: Reports: Hx Rectal Surgery - Immunizations Hx Diphtheria, Pertussis, Tetanus Vaccination: Yes Physical Exam - Vital signs Vitals: Temp Pulse Resp BP Pulse Ox 97.4 F 79 16 176/107 H 99 07/07/19 12:26 07/07/19 12:26 07/07/19 12:26 07/07/19 12:26 07/07/19 12:26 Course - Vital Signs Vital signs: Temp Pulse Resp BP Pulse Ox 97.4 F 79 16 176/107 H 99 07/07/19 12:26 07/07/19 12:26 07/07/19 12:26 07/07/19 12:26 07/07/19 12:26 Doctor's Discharge - Discharge Referrals: ROCIO ARCE MD [Primary Care Provider] - Follow up as needed
[2019-07-07 13:27] LABS: ABSOLUTE EOSINOPHILS # (AUTO) 0.2 10^3/uL (0.0-0.6); ABSOLUTE LYMPHOCYTES (AUTO) 0.9 10^3/uL (0.5-4.7); ABSOLUTE MONOCYTES (AUTO) 0.6 10^3/uL (0.1-1.4); ABSOLUTE NEUT (AUTO) 4.4 10^3/uL (1.7-8.2); BASOPHILS % (AUTO) 0.7 % (0-2); EOSINOPHILS % (AUTO) 2.5 % (0-6); HEMATOCRIT 30.9 % (37.9-51.0); HEMOGLOBIN 10.6 g/dL (13.5-17.0); LYMPHOCYTES % (AUTO) 15.3 % (13-45); MEAN CORPUSCULAR HGB CONC 34.2 g/dL (32.0-36.0); MEAN CORPUSCULAR VOLUME 88 fl (80-97); MONOCYTES % (AUTO) 9.7 % (3-13); PLATELET COUNT 354 10^3/uL (150-450); RED BLOOD COUNT 3.53 10^6/uL (4.35-5.55); RED CELL DISTRIBUTION WIDTH 15.4 % (11.5-14.0); SEGMENTED NEUTROPHILS % (AUTO) 71.8 % (42-78); TOTAL CELLS COUNTED % (AUTO) 100 %; WHITE BLOOD COUNT 6.1 10^3/uL (4.0-10.5)
[2019-07-07 13:45] LABS: ALBUMIN 3.6 g/dL (3.5-5.0); ALKALINE PHOSPHATASE 55 U/L (38-126); ANION GAP 14 (5-19); ASPARTATE AMINO TRANSFERASE 30 U/L (17-59); BILIRUBIN,DIRECT 0.2 mg/dL (0.0-0.4); BILIRUBIN,TOTAL 0.3 mg/dL (0.2-1.3); BLOOD UREA NITROGEN 51 mg/dL (7-20); CALCIUM 10.2 mg/dL (8.4-10.2); CARBON DIOXIDE 28 mmol/L (22-30); CHLORIDE 96 mmol/L (98-107); GLUCOSE 92 mg/dL (75-110); TOTAL PROTEIN 6.7 g/dL (6.3-8.2)
[2019-07-07] MEDS ORDERED: INSULIN REG, HUMAN 100 UNIT/ML 3 ML VIAL (PYX) IV ONE (14:10)
[2019-07-07] MEDS ORDERED: CALCIUM GLUCONATE 1000 MG/10 ML INJ IV ONE (14:10)
[2019-07-07] MEDS ORDERED: DEXTROSE 50%-WATER 25 GM/50 ML DISP.SYRIN IV ONE ×3 (14:10→16:56)
[2019-07-07] MEDS ORDERED: ALBUTEROL SULFATE 0.083% NEB 2.5 MG/3 ML AMPUL NEB ONE (14:13)
[2019-07-07] MEDS ORDERED: SODIUM POLYSTYRENE SULFONATE 15 GM/60 ML PO ONE (14:23)
[2019-07-07] MEDS ORDERED: FUROSEMIDE INJ/PF 20 MG/2 ML SDV IV ONE (14:24)
--- NOTE | 2019-07-07 14:52 | ER Document Report ---
ED General - General Chief Complaint: Abnormal Lab Results Stated Complaint: ABNORMAL LABS Time Seen by Provider: 07/07/19 12:29 Primary Care Provider: ROCIO ARCE MD [Primary Care Provider] - Follow up as needed Oralia AGUILAR MD [ACTIVE STAFF] - Follow up tomorrow Mode of Arrival: Ambulatory Information source: [place], [facility], [facility] Records Notes: milana is a 54-year-old male with a history of end-stage renal disease who performs home peritoneal dialysis sessions daily presents per the direction of his dialysis nurse for elevated potassium. Patient states he is otherwise feeling well. He has no concerns or complaints. He is able to eat and drink without difficulty. He still does produce some urine. He is having normal bowel movements. I have treated and performed a rapid initial assessment of this patient. A comprehensive ED assessment and evaluation of the patient, analysis of test results and completion of medical decision making process will be conducted by additional ED providers. No fever, CP, SOB, abd pain, n/v/d. TRAVEL OUTSIDE OF THE [place] IN LAST 30 DAYS: No - HPI Onset: Just prior to arrival Quality of pain: No pain Severity: None Pain Level: Denies Associated symptoms: denies: Chest pain, Diarrhea, Fever, Headache, Leg swelling, Nausea, Vomiting, Shortness of breath, Slow to respond, Sweating, Weakness Exacerbated by: Denies Relieved by: Denies Similar symptoms previously: Yes Recently seen / treated by doctor: Yes - Related Data Allergies/Adverse Reactions: gabapentin [From Neurontin] Allergy (Verified 06/24/19 18:44) hydroxyzine [From Atarax] Allergy (Verified 06/24/19 18:44) Past Medical History - General Information source: Patient, Dr[facility] Kamara, [facility] Records - Social History Smoking Status: Unknown if Ever Smoked Frequency of alcohol use: None Drug Abuse: None Lives with: Alone Family History: Reviewed & Not Pertinent Patient has suicidal ideation: No Patient has homicidal ideation: No - Past Medical History Cardiac Medical History: Reports: Hx Hypertension Denies: Hx Coronary Artery Disease, Hx Heart Attack Pulmonary Medical History: Denies: Hx Asthma, Hx Bronchitis, Hx COPD, Hx Pneumonia Neurological Medical History: Denies: Hx Cerebrovascular Accident, Hx Seizures Renal/ Medical History: Reports: Hx End Stage Renal Disease, Hx Peritoneal Dialysis GI Medical History: Reports: Hx Gastroesophageal Reflux Disease, Hx Ulcer Musculoskeletal Medical History: Reports Hx Arthritis - generalized Past Surgical History: Reports: Hx Rectal Surgery - Immunizations Hx Diphtheria, Pertussis, Tetanus Vaccination: Yes Hx Pneumococcal Vaccination: 08/17/17 Review of Systems - Review of Systems Notes: REVIEW OF SYSTEMS: CONSTITUTIONAL : Denies fever, chills, or sweats. Denies recent illness. Denies weight loss, recent hospitalizations. EENT: Denies visual changes, eye pain. Denies sore throat, oral lesions, difficulty swallowing. CARDIOVASCULAR: Denies chest pain. Denies palpitations. Denies lower extremity edema. RESPIRATORY: Denies cough. Denies shortness of breath, wheezing. GASTROINTESTINAL: Denies abdominal pain or distention. Denies nausea, vomiting, or diarrhea. Denies blood in vomitus, stools, or per rectum. Denies black, tarry stools. Denies constipation. GENITOURINARY: Denies difficulty urinating, painful urination, frequency, blood in urine, testicular pain or penile discharge. MUSCULOSKELETAL: Denies back or neck pain or stiffness. Denies joint pain or swelling. SKIN: Denies rash, lesions or sores. HEMATOLOGIC : Denies easy bruising or bleeding. LYMPHATIC: Denies swollen glands. NEUROLOGICAL: Denies confusion or altered mental status. Denies loss of consciousness. Denies dizziness or lightheadedness. Denies headache. Denies weakness or paralysis. Denies problems difficulty with ambulation, slurred speech. Denies sensory loss, numbness, or tingling. Denies seizures. PSYCHIATRIC: Denies anxiety or stress. Denies depression, suicidal ideation, or Physical Exam - Vital signs Vitals: Temp Pulse Resp BP Pulse Ox 97.4 F 79 16 176/107 H 99 07/07/19 12:26 07/07/19 12:26 07/07/19 12:26 07/07/19 12:26 07/07/19 12:26 - Notes Notes: PHYSICAL EXAMINATION: GENERAL: Well-appearing, well-nourished and in no acute distress. HEAD: Atraumatic, normocephalic. EYES: Pupils equal round and reactive to light, extraocular movements intact, sclera anicteric, conjunctiva are normal. ENT: Nares patent, oropharynx clear without exudates. Moist mucous membranes. NECK: Normal range of motion, supple without lymphadenopathy LUNGS: Breath sounds clear to auscultation bilaterally and equal. No wheezes rales or rhonchi. HEART: Regular rate and rhythm without murmurs ABDOMEN: Soft, nontender, nondistended abdomen. No guarding, no rebound. No masses appreciated. Musculoskeletal: Normal range of motion, no pitting or edema. No cyanosis. NEUROLOGICAL: Cranial nerves grossly intact. Normal speech, normal gait. Normal sensory, motor exams PSYCH: Normal mood, normal affect. SKIN: Warm, Dry, normal turgor, no rashes or lesions noted. Course - Re-evaluation Re-evalutation: Laboratory 07/07/19 07/07/19 07/07/19 13:05 13:05 15:00 WBC 6.1 RBC 3.53 L Hgb 10.6 L Hct 30.9 L MCV 88 MCH 30.0 MCHC 34.2 RDW 15.4 H Plt Count 354 Lymph % (Auto) 15.3 Atkinson % (Auto) 9.7 Eos % (Auto) 2.5 Baso % (Auto) 0.7 Absolute Neuts (auto) 4.4 Absolute Lymphs (auto) 0.9 Absolute Monos (auto) 0.6 Absolute Eos (auto) 0.2 Absolute Basos (auto) 0.0 Seg Neutrophils % 71.8 Sodium 137.5 137.5 Potassium 7.0 H* 6.3 H* Chloride 96 L 97 L Carbon Dioxide 28 27 Anion Gap 14 14 BUN 51 H 50 H Creatinine 11.57 H 11.44 H Est GFR ( Amer) 6 L 6 L Est GFR (MDRD) Non-Af 5 L 5 L Glucose 92 163 H Calcium 10.2 10.3 H Magnesium 1.8 Total Bilirubin 0.3 Direct Bilirubin 0.2 Neonat Total Bilirubin Not Reportable Neonat Direct Bilirubin Not Reportable Neonat Indirect Bili Not Reportable AST 30 ALT 19 Alkaline Phosphatase 55 Total Protein 6.7 Albumin 3.6 07/07/19 16:20 WBC RBC Hgb Hct MCV MCH MCHC RDW Plt Count Lymph % (Auto) Atkinson % (Auto) Eos % (Auto) Baso % (Auto) Absolute Neuts (auto) Absolute Lymphs (auto) Absolute Monos (auto) Absolute Eos (auto) Absolute Basos (auto) Seg Neutrophils % Sodium 139.9 Potassium 5.9 H Chloride 99 Carbon Dioxide 26 Anion Gap 15 BUN 52 H Creatinine 11.19 H Est GFR ( Amer) 6 L Est GFR (MDRD) Non-Af 5 L Glucose 49 L Calcium 10.4 H Magnesium Total Bilirubin Direct Bilirubin Neonat Total Bilirubin Neonat Direct Bilirubin Neonat Indirect Bili AST ALT Alkaline Phosphatase Total Protein Albumin Temp Pulse Resp BP Pulse Ox 97.4 F 79 21 H 157/130 H 96 07/07/19 12:26 07/07/19 12:26 07/07/19 16:55 07/07/19 16:55 07/07/19 16:01 07/07/19 17:03 Repeat potassium 5.9. I did speak to Dr. Lucas nephrology on-call who is familiar with the patient states that this is an ongoing problem secondary to noncompliance with his medication. Patient declining admission to the hospital. Dr. Lucas is comfortable with discharge home if potassium is less than 6. No significant EKG changes. Patient is asymptomatic. Kayexalate prescription adjusted as per Dr. Lucas's recommendation. Patient was evaluated and treated as appropriate for the patient's presenting symptoms and complaint, with consideration of any critical or life threatening conditions that may be associated with their obtained history and exam as noted above. All results were discussed with patient and... Patient provided the opportunity to ask questions, and express concerns. Patient was educated on treatments based on their presumed diagnosis as noted above. At this time we will discharge the patient with return precautions and follow-up recommendations . Verbal discharge instructions given a the bedside. Medication warnings reviewed. Patient is in agreement with this plan and has verbalized understanding of return precautions. After careful consideration I feel that that patient can be safely discharged from the emergency department, they were advised to followup with a primary care physician in 2-3 days. Dictation on this chart was performed using voice recognition software and may result in unintended grammatical, spelling, syntax or errors. 07/09/19 17:42 - Vital Signs Vital signs: Temp Pulse Resp BP Pulse Ox 97.4 F 79 21 H 157/130 H 96 07/07/19 12:26 07/07/19 12:26 07/07/19 16:55 07/07/19 16:55 07/07/19 16:01 - Laboratory Result Diagrams: 07/07/19 13:05 07/07/19 16:20 Laboratory results interpreted by me: 07/07/19 07/07/19 07/07/19 13:05 13:05 15:00 RBC 3.53 L Hgb 10.6 L Hct 30.9 L RDW 15.4 H Potassium 7.0 H* 6.3 H* Chloride 96 L 97 L BUN 51 H 50 H Creatinine 11.57 H 11.44 H Est GFR ( Amer) 6 L 6 L Est GFR (MDRD) Non-Af 5 L 5 L Glucose 163 H POC Glucose Calcium 10.3 H 07/07/19 07/07/19 16:20 17:05 RBC Hgb Hct RDW Potassium 5.9 H Chloride BUN 52 H Creatinine 11.19 H Est GFR ( Amer) 6 L Est GFR (MDRD) Non-Af 5 L Glucose 49 L POC Glucose 186 H Calcium 10.4 H - EKG Interpretation by Me EKG shows normal: Sinus rhythm Rate: Normal Rhythm: NSR When compared to previous EKG there are: No significant change Discharge - Discharge Clinical Impression: Hyperkalemia, Chronic kidney disease (CKD) stage G4/A1, severely decreased glomerular filtration rate (GFR) between 15-29 mL/min/1.73 square meter and albuminuria creatinine ratio less than 30 mg/g Condition: Good Disposition: HOME, SELF-CARE Additional Instructions: Follow up with your [id number] hours for further care or return to the ED IMMEDIATELY if symptoms worsen or you have any concerns. If you cannot afford to follow up with your primary care physician a list of low cost clinics have been provided at the end of your discharge papers as well. Most prescribed medications have multiple side effects. The safest thing to do is when filling your prescription speak to your pharmacist regarding possible interactions with your normal home medications and over the counter medications such as Ibuprofen, Tylenol, Benadryl. If you experience any symptoms that cause you discomfort or concern you should discontinue the medication immediately and return to the emergency room or call your primary care physician. Prescriptions: Sodium Polystyrene Sulfonate [Kayexalate 15 Gm/60 Ml Susp 60 Ml] 30 gm PO ASDIR PRN #120 bottle PRN Reason: Forms: Elevated Blood Pressure Referrals: ROCIO ARCE MD [Primary Care Provider] - Follow up as needed Oralia AGUILAR MD [ACTIVE STAFF] - Follow up tomorrow
[2019-07-07 15:35] LABS: ANION GAP 14 (5-19); BLOOD UREA NITROGEN 50 mg/dL (7-20); CALCIUM 10.3 mg/dL (8.4-10.2); CARBON DIOXIDE 27 mmol/L (22-30); CHLORIDE 97 mmol/L (98-107); GLUCOSE 163 mg/dL (75-110)
[2019-07-07 15:41] LABS: POTASSIUM 6.3 mmol/L (3.6-5.0)
[2019-07-07] MEDS ORDERED: NORMAL SALINE 500 ML IV ONE (15:42)
[2019-07-07 16:51] LABS: ANION GAP 15 (5-19); BLOOD UREA NITROGEN 52 mg/dL (7-20); CALCIUM 10.4 mg/dL (8.4-10.2); CARBON DIOXIDE 26 mmol/L (22-30); CHLORIDE 99 mmol/L (98-107); POTASSIUM 5.9 mmol/L (3.6-5.0)
[2019-07-07 16:52] LABS: GLUCOSE 49 mg/dL (75-110)
[2019-07-07 17:02] VITALS: BP 157/130
--- NOTE | 2019-07-07 18:10 | EKG REPORT ---
SEVERITY:- ABNORMAL ECG - SINUS RHYTHM CONSIDER ANTEROSEPTAL INFARCT BORDERLINE T WAVE ABNORMALITIES : Confirmed by: Dimitrios Corral MD 07-Jul-2019 18:09:20
== END 2019-07-07 17:21 | disposition home or self-care (01) ==
LOC: ER 12:19
DX: E87.5 Hyperkalemia (principal); I12.9 Hypertensive chronic kidney disease with stage 1 through stage 4 chronic kidney disease, or unspecified chronic kidney disease; N18.4 Chronic kidney disease, stage 4 (severe); Z99.2 Dependence on renal dialysis; Z88.6 Allergy status to analgesic agent; Z88.8 Allergy status to other drugs, medicaments and biological substances
CPT/HCPCS: 93005; 96376; 94640; 99283; 96361; 96374; 96375; 36415; 82962; 83735; 85025; 80053; 93010; J0610; J3490; J1940; A9270 ×3; J7040; J1815

== ENCOUNTER → 2019-07-11 | Outpatient (CLI) | payer MEDICARE, OTHER, MEDICAID | LOC: OD 08:51 | PROVIDERS: ATTEND Internal Medicine Nephrology | DX: E87.5 Hyperkalemia (principal) | CPT/HCPCS: 36415; 84132 ==

== ENCOUNTER → 2019-07-12 | Outpatient (CLI) | payer MEDICARE, OTHER, MEDICAID | LOC: OD 07:47 | PROVIDERS: ATTEND Internal Medicine Nephrology | DX: E87.5 Hyperkalemia (principal) | CPT/HCPCS: 36415; 84132 ==

== ENCOUNTER → 2019-07-25 | Outpatient (CLI) | payer MEDICARE, OTHER, MEDICAID | LOC: OD 08:23 | PROVIDERS: ATTEND Internal Medicine Nephrology | DX: E87.5 Hyperkalemia (principal) | CPT/HCPCS: 36415; 84132 ==

== ENCOUNTER → 2019-08-11 | Outpatient (CLI) | payer MEDICARE, OTHER ==
--- NOTE | 2019-08-11 08:49 | RADIOLOGY REPORT (SQ) ---
EXAM DESCRIPTION: DUPLEX ART/RAJWINDER FLOW COMPLETE COMPLETED DATE/TIME: 08/11/2019 8:15 am REASON FOR STUDY: CONGENITAL RENAL ARTERY STENOSIS (Q27.1), HTN (I10) Q27.1 CONGENITAL RENAL ARTERY STENOSIS I10 ESSENTIAL (PRIMARY) HYPERTENSION COMPARISON: None. TECHNIQUE: Realtime and static grayscale images acquired. Selected color Doppler, velocities and spe ctral images recorded. LIMITATIONS: Limited exam secondary to kidney morphology FINDINGS: RIGHT KIDNEY: RENAL ARTERY VELOCITIES: Origin: Not visualized. Mid: 115 cm/sec. Hilum: 99 cm/sec. Segmental a rtery velocity not visualized. RENAL VEIN: Color doppler flow present, patent. VELOCITY RATIO: 1.11. Normal waveforms. KIDNEY: Markedly enlarged measuring 28 cm with innumerable cysts, some which are incompletely charac terize. LEFT KIDNEY: RENAL ARTERY VELOCITIES: Origin: Not visualized. Mid: 82 cm/sec. Hilum: 100 cm/sec. Segmental a rtery velocity not visualized. RENAL VEIN: Color doppler flow present, patent. VELOCITY RATIO: 0.79. Normal waveforms. KIDNEY: Markedly enlarged measuring 30 cm with innumerable cysts, some of which are incompletely boy racterized. No significant pathology. BLADDER: Normal. OTHER: Aortic velocity of 103 cm/sec. IMPRESSION: 1. Limited exam secondary to kidney morphology. No dopplerable evidence of renal arter y stenosis. 2. Markedly enlarged kidneys with changes of polycystic kidney disease. COMMENT: NORMAL RENAL ARTERY/AORTA VELOCITY RATIO IS LESS THAN OR EQUAL TO 3.5. TECHNICAL DOCUMENTATION: JOB ID: [id number]- All Rights Reserved Reading location - IP/workstation name: [email or web address]
== END ==
LOC: RAD 07:03
PROVIDERS: ATTEND Physician Assistant Medical
DX: Q27.1 Congenital renal artery stenosis (principal); I10 Essential (primary) hypertension; Q61.02 Congenital multiple renal cysts
CPT/HCPCS: 93975

== ENCOUNTER 2019-09-13 07:03 | Emergency (ER) | payer MEDICARE, OTHER, MEDICAID ==
--- NOTE | 2019-09-13 09:50 | EKG REPORT ---
SEVERITY:- ABNORMAL ECG - SINUS RHYTHM VENTRICULAR BIGEMINY PROBABLE LEFT ATRIAL ABNORMALITY ABNORMAL T, CONSIDER ISCHEMIA, LATERAL LEADS : Confirmed by: Riley Felipe 13-Sep-2019 09:49:50
[2019-09-13 10:27] LABS: ABSOLUTE EOSINOPHILS # (AUTO) 0.1 10^3/uL (0.0-0.6); ABSOLUTE LYMPHOCYTES (AUTO) 1.1 10^3/uL (0.5-4.7); ABSOLUTE MONOCYTES (AUTO) 0.8 10^3/uL (0.1-1.4); ABSOLUTE NEUT (AUTO) 5.8 10^3/uL (1.7-8.2); BASOPHILS % (AUTO) 0.4 % (0-2); EOSINOPHILS % (AUTO) 1.5 % (0-6); HEMATOCRIT 29.2 % (37.9-51.0); HEMOGLOBIN 9.8 g/dL (13.5-17.0); LYMPHOCYTES % (AUTO) 13.7 % (13-45); MEAN CORPUSCULAR HEMOGLOBIN 30.2 pg (27.0-33.4); MEAN CORPUSCULAR HGB CONC 33.8 g/dL (32.0-36.0); MEAN CORPUSCULAR VOLUME 90 fl (80-97); MONOCYTES % (AUTO) 10.6 % (3-13); PLATELET COUNT 392 10^3/uL (150-450); RED BLOOD COUNT 3.26 10^6/uL (4.35-5.55); RED CELL DISTRIBUTION WIDTH 16.8 % (11.5-14.0); SEGMENTED NEUTROPHILS % (AUTO) 73.8 % (42-78); TOTAL CELLS COUNTED % (AUTO) 100 %; WHITE BLOOD COUNT 7.8 10^3/uL (4.0-10.5)
[2019-09-13 10:34] LABS: ALBUMIN 3.4 g/dL (3.5-5.0); ALKALINE PHOSPHATASE 70 U/L (38-126); ANION GAP 10 (5-19); ASPARTATE AMINO TRANSFERASE 18 U/L (17-59); BILIRUBIN,DIRECT 0.2 mg/dL (0.0-0.4); BILIRUBIN,TOTAL 0.2 mg/dL (0.2-1.3); BLOOD UREA NITROGEN 47 mg/dL (7-20); CALCIUM 10.8 mg/dL (8.4-10.2); CARBON DIOXIDE 34 mmol/L (22-30); CHLORIDE 94 mmol/L (98-107); GLUCOSE 81 mg/dL (75-110); POTASSIUM 4.9 mmol/L (3.6-5.0)
--- NOTE | 2019-09-13 11:07 | ER Document Report ---
ED Cardiac - General Chief Complaint: Arrhythmia Stated Complaint: BLOOD PRESSURE ISSUE Time Seen by Provider: 09/13/19 09:13 Primary Care Provider: ROCIO ARCE MD [Primary Care Provider] - Follow up as needed Mode of Arrival: Ambulatory Information source: Patient TRAVEL OUTSIDE OF THE [place] IN LAST 30 DAYS: No - HPI Notes: Patient comes in with a complaint of low heart rate. Patient states that he monitors his vitals every day and noticed that his heart rate was low yesterday and today. He contacted his primary care doctor who suggested he come to the emergency department. He states otherwise he has not had any symptoms. He has not been lightheaded or dizzy. No shortness of breath that is new. No chest pa in. Patient states as far as he knows the low heart rate has been constant. He does not know if anything is made it better or worse. There is no known radiation of the symptoms. They have been mild. Patient states he has no other complaints at has not recently been ill. - Related Data Allergies/Adverse Reactions: gabapentin [From Neurontin] Allergy (Verified 06/24/19 18:44) hydroxyzine [From Atarax] Allergy (Verified 06/24/19 18:44) Past Medical History - General Information source: Patient - Social History Smoking Status: Former Smoker Chew tobacco use (# tins/day): No Frequency of alcohol use: None Drug Abuse: None Family History: Reviewed & Not Pertinent Patient has suicidal ideation: No Patient has homicidal ideation: No - Past Medical History Cardiac Medical History: Reports: Hx Hypertension Denies: Hx Coronary Artery Disease, Hx Heart Attack Pulmonary Medical History: Denies: Hx Asthma, Hx Bronchitis, Hx COPD, Hx Pneumonia Neurological Medical History: Denies: Hx Cerebrovascular Accident, Hx Seizures Renal/ Medical History: Reports: Hx End Stage Renal Disease, Hx Peritoneal Dialysis GI Medical History: Reports: Hx Gastroesophageal Reflux Disease, Hx Ulcer Musculoskeletal Medical History: Reports Hx Arthritis - generalized Past Surgical History: Reports: Hx Rectal Surgery - Immunizations Hx Diphtheria, Pertussis, Tetanus Vaccination: Yes Hx Pneumococcal Vaccination: 08/17/17 Review of Systems - Review of Systems Constitutional: denies: Chills, Fever Cardiovascular: denies: Chest pain, Palpitations Respiratory: denies: Cough, Short of breath -: Yes All other systems reviewed and negative Physical Exam - Vital signs Vitals: Resp Pulse Ox 10 L 96 01/28/20 09:47 09/13/19 09:47 Interpretation: Normal - General General appearance: Appears well, Alert - HEENT Head: Normocephalic, Atraumatic Eyes: Normal Pupils: PERRL - Respiratory Respiratory status: No respiratory distress Chest status: Nontender Breath sounds: Normal Chest palpation: Normal - Cardiovascular Rhythm: Other - Irregular Heart sounds: Normal auscultation Murmur: No - Abdominal Inspection: Obese Distension: Distended Bowel sounds: Hypoactive Tenderness: Nontender Organomegaly: No organomegaly - Back Back: Normal, Nontender - Extremities General upper extremity: Normal inspection, Nontender, Normal color, Normal ROM, Normal temperature General lower extremity: Normal inspection, Nontender, Normal color, Normal ROM, Normal temperature, Normal weight bearing. No: Thony's sign - Neurological Neuro grossly intact: Yes Cognition: Normal Orientation: AAOx4 Whick Coma Scale Eye Opening: Spontaneous Joseph Coma Scale Verbal: Oriented Joseph Coma Scale Motor: Obeys Commands Whick Coma Scale Total: 15 Speech: Normal Motor strength normal: LUE, RUE, LLE, RLE Sensory: Normal - Psychological Associated symptoms: Normal affect, Normal mood - Skin Skin Temperature: Warm Skin Moisture: Dry Skin Color: Normal Course - Re-evaluation Re-evalutation: 09/13/19 11:15 Patient presents with stating that his heart rate was low at home. He has a mildly elevated magnesium and calcium with this is not thought to contribute to any of his arrhythmias. Here he has had a normal heart rate and normal blood pressure. He has been asymptomatic. He has had some occasional bigeminy. I spoke with the spray applicator, Dr. Peguero, who is asked that the patient follow-up in the office in the morning. - Vital Signs Vital signs: Temp Pulse Resp BP Pulse Ox 98.0 F 16 136/94 H 96 09/13/19 10:01 09/13/19 10:01 09/13/19 10:01 09/13/19 10:01 - Laboratory Result Diagrams: 09/13/19 09:25 09/13/19 09:25 Laboratory results interpreted by me: 09/13/19 09/13/19 09:25 09:25 RBC 3.26 L Hgb 9.8 L Hct 29.2 L RDW 16.8 H Chloride 94 L Carbon Dioxide 34 H BUN 47 H Creatinine 13.50 H Est GFR ( Amer) 5 L Est GFR (MDRD) Non-Af 4 L Calcium 10.8 H Magnesium 2.4 H Total Protein 6.0 L Albumin 3.4 L - EKG Interpretation by Me EKG shows normal: Sinus rhythm Rate: Normal - 80 Rhythm: NSR, Other - with occasional bigem When compared to previous EKG there are: Changes noted - new bigem Discharge - Discharge Clinical Impression: Ventricular bigeminy Condition: Stable Disposition: HOME, SELF-CARE Referrals: JOB PEGUERO MD [ACTIVE STAFF] - Follow up tomorrow
[2019-09-13 11:25] VITALS: BP 146/119
== END 2019-09-13 11:25 | disposition home or self-care (01) ==
LOC: ER 07:03
DX: R00.8 Other abnormalities of heart beat (principal); I49.9 Cardiac arrhythmia, unspecified; Z79.899 Other long term (current) drug therapy; Z87.891 Personal history of nicotine dependence; I10 Essential (primary) hypertension
CPT/HCPCS: 36415; 80053; 83735; 84484; 85025; 93005; 93010; 99285

== ENCOUNTER 2019-10-12 23:57 | Emergency (ER) | payer MEDICARE ==
[2019-10-13 00:04] VITALS: BP 183/115
== END 2019-10-13 03:46 | disposition left against medical advice (07) ==
LOC: ER 23:57
DX: Z53.21 Procedure and treatment not carried out due to patient leaving prior to being seen by health care provider (principal); I10 Essential (primary) hypertension

== ENCOUNTER → 2019-12-13 | Outpatient (CLI) | payer MEDICARE, MEDICAID ==
[2019-12-13 08:08] LABS: APPEARANCE,URINE CLEAR; BILIRUBIN,URINE NEGATIVE (NEGATIVE); COLOR,URINE YELLOW; GLUCOSE, URINE NEGATIVE (NEGATIVE); KETONES,URINE NEGATIVE (NEGATIVE); LEUKOCYTE ESTERASE,URINE NEGATIVE (NEGATIVE); NITRITE,URINE NEGATIVE (NEGATIVE); PROTEIN,URINE 30 mg/dL (NEGATIVE); URINE SPECIFIC GRAVITY 1.017; UROBILINOGEN,URINE NEGATIVE mg/dL (<2.0)
[2019-12-13 08:11] LABS: MEAN CORPUSCULAR HGB CONC 34.2 g/dL (32.0-36.0); MEAN CORPUSCULAR VOLUME 88 fl (80-97); PLATELET COUNT 409 10^3/uL (150-450); RED BLOOD COUNT 3.98 10^6/uL (4.35-5.55); RED CELL DISTRIBUTION WIDTH 16.4 % (11.5-14.0); WHITE BLOOD COUNT 5.7 10^3/uL (4.0-10.5)
[2019-12-13 08:41] LABS: UR PRO/CREAT RATIO RESULT 0.3 mg/mg (0.0-0.2); URINE CREATININE 127.7 mg/dL (22-328); URINE PROTEIN 37.8 mg/dL (<12)
[2019-12-13 08:42] LABS: ANION GAP 8 (5-19); BLOOD UREA NITROGEN 31 mg/dL (7-20); CARBON DIOXIDE 25 mmol/L (22-30); CHLORIDE 104 mmol/L (98-107); GLUCOSE 100 mg/dL (75-110); PHOSPHORUS 3.2 mg/dL (2.5-4.5); POTASSIUM 5.7 mmol/L (3.6-5.0)
[2019-12-13 08:46] LABS: ABSOLUTE LYMPHOCYTES# (MANUAL) 0.2 10^3/uL (0.5-4.7); ABSOLUTE MONOCYTES # (MANUAL) 0.1 10^3/uL (0.1-1.4); BASOPHILS % (MANUAL) 0 % (0-2); EOSINOPHILS % (MANUAL) 2 % (0-6); LYMPHOCYTES % (MANUAL) 3 % (13-45); MONOCYTES % (MANUAL) 1 % (3-13); SEGMENTED NEUTROPHILS % (MAN) 94 % (42-78); TOTAL CELLS COUNTED 100
[2019-12-13 08:47] LABS: ANISOCYTOSIS 1+; PLATELET COMMENT ADEQUATE; TOXIC VACUOLATION PRESENT
[2019-12-13 08:57] LABS: CALCIUM 12.2 mg/dL (8.4-10.2)
== END ==
LOC: OD 07:29
PROVIDERS: ATTEND Surgery
DX: N18.9 Chronic kidney disease, unspecified (principal); Z94.0 Kidney transplant status
CPT/HCPCS: 36415; 80048; 80197; 81001; 82570; 83735; 84100; 84156; 85025

== ENCOUNTER → 2020-01-02 | Outpatient (CLI) | payer MEDICARE, MEDICAID ==
[2020-01-02 09:55] LABS: APPEARANCE,URINE CLEAR; BILIRUBIN,URINE NEGATIVE (NEGATIVE); COLOR,URINE STRAW; GLUCOSE, URINE NEGATIVE (NEGATIVE); KETONES,URINE NEGATIVE (NEGATIVE); LEUKOCYTE ESTERASE,URINE NEGATIVE (NEGATIVE); NITRITE,URINE NEGATIVE (NEGATIVE); PROTEIN,URINE NEGATIVE (NEGATIVE); URINE SPECIFIC GRAVITY 1.014; UROBILINOGEN,URINE NEGATIVE mg/dL (<2.0)
[2020-01-02 10:02] LABS: HEMATOCRIT 35.4 % (37.9-51.0); MEAN CORPUSCULAR HEMOGLOBIN 29.4 pg (27.0-33.4); MEAN CORPUSCULAR HGB CONC 33.9 g/dL (32.0-36.0); MEAN CORPUSCULAR VOLUME 87 fl (80-97); RED BLOOD COUNT 4.08 10^6/uL (4.35-5.55); RED CELL DISTRIBUTION WIDTH 15.2 % (11.5-14.0); WHITE BLOOD COUNT 4.7 10^3/uL (4.0-10.5)
[2020-01-02 10:04] LABS: ANION GAP 9 (5-19); BLOOD UREA NITROGEN 53 mg/dL (7-20); CALCIUM 11.5 mg/dL (8.4-10.2); CARBON DIOXIDE 22 mmol/L (22-30); CHLORIDE 105 mmol/L (98-107); GLUCOSE 100 mg/dL (75-110); PHOSPHORUS 3.5 mg/dL (2.5-4.5)
[2020-01-02 10:11] LABS: POTASSIUM 6.4 mmol/L (3.6-5.0)
[2020-01-02 10:28] LABS: ABSOLUTE LYMPHOCYTES# (MANUAL) 0.2 10^3/uL (0.5-4.7); ABSOLUTE MONOCYTES # (MANUAL) 0.2 10^3/uL (0.1-1.4); BAND NEUTROPHILS % (MANUAL) 1 % (3-5); BASOPHILS % (MANUAL) 0 % (0-2); EOSINOPHILS % (MANUAL) 3 % (0-6); LYMPHOCYTES % (MANUAL) 4 % (13-45); MONOCYTES % (MANUAL) 4 % (3-13); SEGMENTED NEUTROPHILS % (MAN) 88 % (42-78); TOTAL CELLS COUNTED 100
[2020-01-02 10:29] LABS: ANISOCYTOSIS SLIGHT; PLATELET CLUMPS PRESENT; PLATELET COMMENT ADEQUATE
[2020-01-02 10:36] LABS: PLATELET COUNT 395 10^3/uL (150-450)
== END ==
LOC: OD 08:00
PROVIDERS: ATTEND Surgery
DX: N18.9 Chronic kidney disease, unspecified (principal); Z94.0 Kidney transplant status
CPT/HCPCS: 36415; 80048; 80197; 81001; 83735; 84100; 85025

== ENCOUNTER → 2020-02-29 | Outpatient (CLI) | payer MEDICARE, MEDICAID ==
--- NOTE | 2020-03-01 12:15 | RADIOLOGY REPORT (SQ) ---
EXAM DESCRIPTION: FOOT BILATERAL 2 VIEWS IMAGES COMPLETED DATE/TIME: 03/01/2020 9:43 am REASON FOR STUDY: PAIN IN LEFT FOOT M79.672 PAIN IN LEFT FOOT COMPARISON: None. NUMBER OF VIEWS: Six views. TECHNIQUE: AP and lateral without weight bearing radiographic images acquired of the right and left foot. LIMITATIONS: None. FINDINGS: MINERALIZATION: Normal. BONES: No acute fracture or dislocation. No worrisome bone lesions. No significant osteophytes. JOINTS: No erosions. No mandeep-articular osteopenia. No chondrocalcinosis. SOFT TISSUES: No swelling. No calcifications. OTHER: No other significant finding. IMPRESSION: NEGATIVE STUDY OF THE RIGHT AND LEFT FEET. NO EXPLANATION FOR PAIN. TECHNICAL DOCUMENTATION: JOB ID: [id number] 2010 [employer]- All Rights Reserved Reading location - IP/workstation name: [email or web address]
== END ==
LOC: OD 09:36
PROVIDERS: ATTEND Family Medicine
DX: M79.672 Pain in left foot (principal)